=== PATIENT | female | born 1935 | race Caucasian/White ===

== ENCOUNTER 2020-06-30 10:59 | Outpatient (RCR) | payer MEDICARE, OTHER, SELFPAY | END 2020-06-30 23:59 | LOC: IMMUN 10:59 | PROVIDERS: PCP Family Medicine; Referring Provider Family Medicine; Visit Provider Family Medicine | DX: Z23 Encounter for immunization (principal) | CPT/HCPCS: 0011A; 0012A; 91301 ==

== ENCOUNTER → 2020-09-23 11:04 | Outpatient (CLI) | payer MEDICARE, SELFPAY ==
--- NOTE | 2020-09-23 11:07 | US_ITS ---
STUDY: RENAL ULTRASOUND - COMPLETE REASON FOR EXAM: Female, 85 years old. UTI recurring. TECHNIQUE: Ultrasound evaluation of the kidneys was performed with real-time and static thomas-scale imaging. COMPARISON: None. FINDINGS: RIGHT KIDNEY: Normal location of the right kidney, which is normal in size. The right kidney measures 9.2 cm x 4.2 cm x 3.9 cm. There is a normal cortex of the right kidney. The renal cortex measures 1.1 cm. There is no right renal mass or cyst. There are no right renal calculi. There is no right hydronephrosis. DISTAL RIGHT URETER: There is non-visualization of the distal right ureter. There is no demonstrated right ureterovesical junction calculus. There is no demonstrated right ureteral jet. LEFT KIDNEY: Normal location of the left kidney, which is normal in size. The left kidney measures 8.9 cm x 4.2 cm x 4 cm. There is a normal cortex of the left kidney. The renal cortex measures 1.0 cm. There is no left renal mass or cyst. There are no left renal calculi. There is no left hydronephrosis. DISTAL LEFT URETER: There is non-visualization of the distal left ureter. There is no demonstrated left ureterovesical junction calculus. There is no demonstrated left ureteral jet. BLADDER: The distended urinary bladder has a volume of 168.3 ml. There is a normal wall thickness of the distended urinary bladder. There is no demonstrated mass within the urinary bladder. There are no demonstrated bladder calculi. US/Kidney and Bladder IMPRESSION: Normal ultrasound of the kidneys and urinary bladder. Electronically Signed: Souleymane Luther MD at 14:51 EDT , Service support ,
== END ==
PROVIDERS: PCP Family Medicine; Referring Provider Urology; Visit Provider Urology
DX: N39.0 Urinary tract infection, site not specified (principal)
CPT/HCPCS: 76770

== ENCOUNTER → 2020-11-26 13:40 | Outpatient (CLI) | payer MEDICARE, SELFPAY ==
--- NOTE | 2020-11-26 13:42 | RAD_ITS ---
EXAM: XR LUMBOSACRAL SPINE, 4 OR 5 VIEWS : 1935 CLINICAL INDICATION: UTI, BACK PAIN TECHNIQUE: Frontal, lateral and oblique views of the lumbar spine. This report was created using Monitor110 report Tour Engine technology. COMPARISON: None. FINDINGS: VERTEBRAE: Unremarkable. Preserved vertebral body height. No fracture. No spondylolisthesis. Preservation of the normal lumbar lordosis. No significant facet arthropathy. DISC SPACES: There is disc space narrowing 1-2, L2-3 and L5 the-S1. There is bony neural foraminal narrowing at L5-S1. GASTROINTESTINAL TRACT: Unremarkable as visualized. Included bowel gas pattern is non-obstructive. OTHER FINDINGS: Oblique views show no evidence of a pars defect. RAD/L/S Spine Min 4 Views IMPRESSION: Degenerative changes with disc space narrowing in the lower lumbar spine. There is no acute osseous abnormality. at 0338 Reported and signed by: Cooper Gordon MD Electronically Signed: Cooper Gordon MD at 3:36 EDT Tel , Service support ,
== END ==
PROVIDERS: PCP Family Medicine; Referring Provider Urology; Visit Provider Urology
DX: N39.0 Urinary tract infection, site not specified (principal); M54.9 Dorsalgia, unspecified
CPT/HCPCS: 72110

== ENCOUNTER 2023-01-23 14:54 | Observation (INO) | payer MEDICARE, SELFPAY ==
--- NOTE | 2023-01-23 14:55 | RAD_ITS ---
STUDY: X-RAY - RIGHT SHOULDER REASON FOR EXAM: Female, 87 years old. Injury/Pain TECHNIQUE: 2 view(s) of the shoulder. COMPARISON: None. FINDINGS: Comminuted fractures are seen of the humeral head including a fragment of the greater tuberosity. Probable nondisplaced fracture through the surgical neck of the humerus. No angulation. Unremarkable glenohumeral articulation. Normal acromioclavicular joint. Normal acromion. The soft tissue structures are unremarkable. Normal visualized pulmonary apex. RAD/Shoulder min 2 Views IMPRESSION: Multi fragmented fractures of the humeral head and likely through the humeral neck without significant displacement. Electronically Signed: Stephen Lozano MD at 16:27 EDT ,
[2023-01-23 14:56] VITALS: BP 114/51; PULSE 81; RESP 16; TEMP 36.3; O2SAT 94; BMI 24.6
[2023-01-23 15:02] VITALS: O2SAT 94
--- NOTE | 2023-01-23 15:11 | EDS_ITS ---
HPI History of Present Illness Chief Complaint: Fall Detail of Chief Complaint: Patient complains of right shoulder and right hip pain status post fall. Informant: patient Onset/Context/Timing Onset: Hours Mechanism/Context: Blunt Injury and Fall Location of pain/injuries: Right shoulder and Right hip Location: Home Current Severity: Mild Maximum Severity: Severe Worsened by: Movement of right upper extremity and right lower extremity Relieved by: The hip pain is better if she remains still the shoulder pain is constant Associated Symptoms Associated Symptoms: Positive for Loss of function and Inability to ambulate; Negative for Parasthesias, Weakness, Loss of consciousness or Amnesia Length of loss of consciousness: Not applicable Narrative Narrative: Patient is a 87-year-old female. She cannot follow-up. She landed on her right side. She denies head trauma. She denies loss of conscious. She denies neck pain. She denies paresthesia, anesthesia or motor weakness presently at the time of the fall. She denies shortness of breath or chest pain. She denies abdominal pain. She denies low back pain. Tetanus Immunization: Unknown Recent Illness/Hospitalization: No PFSH PFSH Home Medications hydrocodone-acetaminophen 5-325mg 5mg-325mg 1 tab PO Q6H PRN PRN Pain 5 days #20 TABLETS 01/23/23 [Rx Last Taken Unknown] Allergy/AdvReac Type Severity Reaction Status Date / Time Penicillins Allergy Intermediate HIVES Verified 01/23/23 15:38 cefuroxime Allergy Mild Itching Verified 01/23/23 15:38 clindamycin Allergy Mild Itching Verified 01/23/23 15:38 nitrofurantoin AdvReac GI UPSET Verified 01/23/23 15:38 prednisone AdvReac CONFUSION Verified 01/23/23 15:38 Sulfa (Sulfonamide AdvReac DIARRHEA Verified 01/23/23 15:38 Antibiotics) tramadol AdvReac DIZZINESS, Verified 01/23/23 15:38 INSOMNIA zolpidem AdvReac CONFUSION Verified 01/23/23 15:38 Social History (Updated 01/23/23 @ 15:[address] Hever Ash MD) household members: none Smoking Status: Never smoker substance use type: does not use ROS ROS ED Constitutional Constitutional ED: Denies chills, fever(s), subjective, sweats or weight loss Eyes Eyes: Denies blurry vision or change in vision ENT ENT ED: Denies ear pain, rhinorrhea or sore throat Cardiovascular Cardiovascular: Denies chest pain, palpitations or racing heartbeat Respiratory/Chest Respiratory/Chest: Denies cough, dyspnea or dyspnea on exertion Gastrointestinal Gastrointestinal: Denies abdominal pain, melena, nausea or vomiting Genitourinary Genitourinary ED: Denies dysuria, hematuria or urinary frequency Musculoskeletal Musculoskeletal: Reports other Details: Complains of right hip and right shoulder pain. Patient is holding her right upper extremity internally rotated and abducted. ; Denies arthralgias, back pain or myalgias Integumentary Denies rash Neurologic Neurologic: Denies headache(s) or paresthesias Endocrine Endocrinology: Denies cold intolerance or heat intolerance Hematologic/Lymphatic Hematologic/Lymphatic: Denies easy bleeding or easy bruising EXAM Physical Exam Const Vital Signs: 01/23/23 14:56 01/23/23 15:02 Temperature 97.4 F L Temperature Source Temporal Pulse Rate 81 Respiratory Rate 16 Respiratory Effort Normal Non-Labored Respiratory Depth Normal Respiratory Pattern Normal Blood Pressure 114/51 L Blood Pressure Mean 72 Pulse Ox 94 94 Oxygen Delivery Method Room Air Room Air Positive well nourished and well developed Constitutional Narrative: Patient appears uncomfortable. Vital signs noted. She is not hypoxic. She is not febrile. General Appearance ED: well developed; Negative for NAD HEENT HEENT Narrative: Head is atraumatic and normocephalic. Ears normal. No hemotympanum. No CSF otorrhea or rhinorrhea. No septal deviation hematoma. No dental trauma. No tenderness of the right or left TMJ joint. Eyes PERRL and EOMs intact bilaterally General Eye ED: Yes other Other Details: There is no subconjunctival hemorrhage. There is no diagnosis. Neck Neck Narrative: There is no pain outpatient posteriorly in the midline. Patient moves her neck freely without pain or complaint of pain. Chest Wall inspection of chest normal and palpation of chest normal Resp normal respiratory effort and clear to auscultation bilaterally Cardio regular rhythm, S1 normal heart sound, S2 normal heart sound and no murmurs Rate: regular rate GI normal to inspection, nondistended, normoactive bowel sounds, non-tender, non-distended and no masses GI Narrative: There is no palpable or pulsatile mass. There is nominal bruit. Palpation: soft Back/Spine normal to inspection and no thoracic nor lumbar tenderness Extremity Negative for normal to inspection Extremity Narrative: There is swelling of the right shoulder with pain ovation of the proximal humerus. There is no pain ovation over the clavicle or AC joint. There is no pain ovation over the olecranon process, lateral medial epicondyle or radial head. Patient has no pain the patient with distal radius ulna, carpal bones or metacarpal bones. Axillary, median, radial and ulnar function intact. The right lower extremity is shortened. Logrolling causes her discomfort in the right groin. DP pulses palpable. There is no evidence of trauma to the knee or ankle. There is no tenderness of the patella, joint line of the right knee. There is no swelling of the right ankle with no tenderness over the lateral or medial malleolus. There is no pain to palpation of the base of the fifth metatarsal. Neuro oriented x3, CN's II-XII intact bilaterally, No moves all extremities, no focal motor deficits and no sensory deficits noted Mar Coma Scale: document GCS findings Spontaneous Obeys Commands Oriented 15 Plantar Reflex: Downgoing: bilateral Psych mental status grossly normal and thought process normal Skin no rashes or lesions noted, no wounds, No skin turgor normal and no jaundice MDM MDM MDM Narrative Medical decision making narrative: X-ray of the right shoulder was obtained since concern patient has a proximal humeral fracture. Because patient has a shortened right lower extremity and groin pain with internal and external rotation suspect that she has a hip fracture as well. Patient was medicated with morphine. History & Record Review Discussion w/independent historian: Family (Daughter was informed of results. Daughter informing that she has not seen orthopedic surgeon. She was referred to Dr. Stein.) Lab Data Attestation: I reviewed the patient's lab results. Lab results narrative: CBC is unremarkable. MCV is elevated, 105 1 4. Basic metabolic panel reveals an elevated creatinine of 1.08 with a GFR of 51. Glucose is 154 with a normal CO2 and anion gap. Labs: Laboratory Results - last 24 hr 01/23/23 15:20 WBC 7.4 RBC 3.88 L Hgb 13.2 Hct 40.9 MCV 105.4 H MCH 34.0 H MCHC 32.3 RDW Std Deviation 54.1 H RDW Coeff of Shaila 13.8 Plt Count 112 L MPV 11.1 Immature Gran % (Auto) 0.500 Neut % (Auto) 69.7 Lymph % (Auto) 20.2 [place] % (Auto) 5.8 Eos % (Auto) 3.4 Baso % (Auto) 0.4 Absolute Neuts (auto) 5.1 Absolute Lymphs (auto) 1.49 Nucleated RBC % 0 Sodium 139 Potassium 3.7 Chloride 108 H Carbon Dioxide 26.0 Anion Gap 5 BUN 20 H Creatinine 1.08 H Estim Creat Clear Calc 27.17 Est GFR (MDRD) Af Amer 62 Est GFR (MDRD) Non-Af 51 L BUN/Creatinine Ratio 18.5 Glucose 154 H Calcium 8.9 Radiography Chest X-Ray - ED: 2 View (2 view x-ray of the humerus reveals what appears to be a fracture through a large osteophyte where the supraspinatus tendon would attach and there appears to be disruption of the cortex inferiorly where the surgical neck would be.) and Read by ED Physician (Three-view x-ray of the hip reveals no evidence of fracture, subluxation or dislocation of the femur and there is no evidence of fracture of the pelvis.) Discharge Plan Triage Chief Complaint: Fall ED Provider: Hever Ash Dx/Rx/DC Orders Clinical Impression: Injury due to fall, Nondisplaced fracture of proximal end of right humerus, Contusion of right hip, initial encounter Instructions: ED Fracture, Shoulder Prescriptions: New hydrocodone-acetaminophen [hydrocodone-acetaminophen] 5-325 mg tablet 1 tab PO Q6H PRN PRN (Reason: Pain) 5 Days Qty: 20 0RF Stand Alone Forms: [facility] Primary Care Provider: Odin Bolton Referrals: Odin Bolton DO [Primary Care Provider] - Rip Stein DO [Med Staff - Active Staff] - 5-7 Days Disposition Disposition: Home, Self Care
[2023-01-23 15:31] LABS: Absolute Lymphocyte Count 1.49 X10^3/uL (0.83-4.51); Absolute Neutrophil Count 5.1 X10^3/uL (2.0-7.7); Basophil# 0.03 X10^3/uL; Basophil% 0.4 % (0-1); Eosinophil# 0.25 X10^3/uL; Eosinophils% 3.4 % (0-5); Hematocrit 40.9 % (37-47); Hemoglobin 13.2 g/dL (12.0-15.0); Lymphocyte # 1.49 X10^3/ul (0.83-4.51); Lymphocyte % 20.2 % (19-41); Mean Corp Hgb Conc 32.3 g/dL (32-36); Mean Corpuscular Volume 105.4 fL (81-99); Mean Platelet Vol. 11.1 fl (6.2-12.0); Monocyte# 0.43 X10^3/uL; Monocyte% 5.8 % (0-10); NRBC Flagged by Analyzer 0 % (0-5); Neutrophil # 5.13 X10^3/uL (2.7-7.7); Neutrophil % 69.7 % (47-70); Platelet Count 112 K/mm3 (150-450); RBC Distribution Width CV 13.8 % (11.6-14.6); RBC Distribution Width SD 54.1 fl (35.1-43.9); Red Blood Count 3.88 M/mm3 (4.2-5.4); White Blood Count 7.4 K/mm3 (4.4-11.0)
[2023-01-23] MEDS: Morphine 2 MG/ML Syringe IV ×3 (15:32→21:55)
[2023-01-23 15:43] LABS: Anion Gap 5 (5-15); BUN 20 mg/dL (7-18); BUN/Creat Ratio 18.5 RATIO (10-20); Calcium,Total 8.9 mg/dL (8.5-10.1); Chloride 108 mmol/L (98-107); Creatinine, Serum 1.08 mg/dL (0.55-1.02); EST Glomerular Filtration Rate 51 mL/min (>60); Est Glom Filt Rate - Afr Amer 62 mL/min (>60); Estimated Creatinine Clearance 27.17 ml/min; Glucose 154 mg/dL (74-106); Potassium 3.7 mmol/L (3.5-5.1); Sodium Level 139 mmol/L (136-145)
--- NOTE | 2023-01-23 15:43 | RAD_ITS ---
STUDY: X-RAY - PELVIS AND RIGHT HIP REASON FOR EXAM: Female, 87 years old. Injury/Pain TECHNIQUE: 3 views of the pelvis and hip. COMPARISON: None. FINDINGS: There is a non-specific bowel gas pattern. Normal visualized soft tissue structures. Normal bilateral iliac wings, sacroiliac joints and visualized sacrum. Normal bilateral superior and inferior pubic rami. Normal pubic symphysis. Normal bilateral ischial tuberosities. Normal visualized femoral head. Normal acetabulum. Normal hip joint. RAD/HIP, UNI W/ Pelvis 2-3 Views IMPRESSION: Normal x-ray examination of the pelvis and hip. Electronically Signed: Stephen Lozano MD at 16:26 EDT ,
--- NOTE | 2023-01-23 16:41 | HP.PCM_ITS ---
HPI - General General Date of Admission: 01/23/23 Date of Service: 01/23/23 Chief Complaint: mechanical fall HPI Narrative ALICIA TIWARI, is a 87 F with a PMH as outlined who presents via the ED on 01/23/2023 with a complaint of mechanical fall. She fell and landed on her right side. She denied hitting her head, and denied any dizziness, lightheadedness, shortness of breath or any such complaints. She did admit to pain in her RUE and RLE and couldnt weight bear due to pain. She came in to the ED for evaluation. Her daughters were by her bedside, and stated patient had had similar previous falls whilst at her boyfriend's house. THis current fall was also at her boyfriend's house. She is on eliquis. She denies hitting her head. Vitals in the ED were temp of 97.4F, [place] of 81, BP of 114/51, RR of 16 and pulse ox of 94% on room air. CBC showed hb of 13.2, wbc of 7.4, platelets of 112. Chemistry showed sodium of 139, bicarb of 26 and Cr of 1.08. Pelvic xray was normal and showed no evidence of fracture. Xray of the RUE showed mult ifragmented fractures of the humeral head and likely through the humeral neck without significant displacement. SHe was to be discharged fro the ED but was unable to weight bear due to pain. Family was willing to take her home to care for her, but were concerned about her significant pain. She is therefore being admitted to be managed for debility and intractable pain due to mechanical fall. PFSH Home Medications hydrocodone-acetaminophen 5-325mg 5mg-325mg 1 tab PO Q6H PRN PRN Pain 5 days #20 TABLETS 01/23/23 [Rx Last Taken Unknown] Allergy/AdvReac Type Severity Reaction Status Date / Time Penicillins Allergy Intermediate HIVES Verified 01/23/23 15:38 cefuroxime Allergy Mild Itching Verified 01/23/23 15:38 clindamycin Allergy Mild Itching Verified 01/23/23 15:38 nitrofurantoin AdvReac GI UPSET Verified 01/23/23 15:38 prednisone AdvReac CONFUSION Verified 01/23/23 15:38 Sulfa (Sulfonamide AdvReac DIARRHEA Verified 01/23/23 15:38 Antibiotics) tramadol AdvReac DIZZINESS, Verified 01/23/23 15:38 INSOMNIA zolpidem AdvReac CONFUSION Verified 01/23/23 15:38 Social History (Updated 01/23/23 @ 15:[address] Hever Ash MD) household members: none Smoking Status: Never smoker substance use type: does not use ROS Review of Systems ROS Unobtainable: Denies due to encephalopathy Constitutional Constitutional: Reports fatigue, malaise and weakness; Denies anorexia, chills or fever(s) Eyes Eyes: Denies change in vision ENT HEENT: Denies dysphagia or headache(s) Cardiovascular Cardiovascular: Denies chest pain, edema, palpitations or paroxysmal nocturnal dyspnea Respiratory/Chest Respiratory/Chest: Denies cough, shortness of breath at rest or shortness of breath with exertion Gastrointestinal Gastrointestinal: Denies abdominal pain, constipation, diarrhea, nausea or vomiting Genitourinary Genitourinary: Denies dysuria Musculoskeletal Musculoskeletal: Denies back pain or joint pain Neurologic Neurologic: Denies confusion, dizziness, focal weakness or headache(s) Psychiatric Psychiatric: Denies anxiety or depression Endocrine Endocrinology: Denies change in body appearance Vital Signs Vital Signs Vital Signs: 01/23/23 14:56 01/23/23 15:02 Temperature 97.4 F L Temperature Source Temporal Pulse Rate 81 Respiratory Rate 16 Respiratory Effort Normal Non-Labored Respiratory Depth Normal Respiratory Pattern Normal Blood Pressure 114/51 L Blood Pressure Mean 72 Pulse Ox 94 94 Oxygen Delivery Method Room Air Room Air Weight Weight: 130 lb 4.691 oz Body Mass Index (BMI) 24.6 Physical Exam Const alert and oriented x3 Constitutional Narrative: in moderate distress due to pain. HEENT normocephalic, head/scalp atraumatic, moist oral mucous membranes, oropharynx normal and gingiva normal Eyes PERRL and EOMs intact bilaterally Neck supple and no JVD Lymph Lymphatic: no lymphadenopathy noted Resp normal respiratory effort, normal air movement and clear to auscultation bilaterally Cardio regular rate, regular rhythm, S1 normal heart sound, S2 normal heart sound and no murmurs GI normal to inspection, nondistended, normoactive bowel sounds, soft to palpation, non-tender and non-distended Extremity normal capillary refill and no clubbing, cyanosis or edema Extremity Narrative: RUE in sling, has severe tenderness with palpation of right shoulder, unable to move right arm due to pain. Skin General Skin Exam: no breakdown Neuro CN's II-XII intact bilaterally, no focal motor deficits and no sensory deficits noted Psych cooperative Psych Narrative: mild distress due to pain Mood & Affect: anxious Results Lab / Micro Data 01/23/23 15:20 01/23/23 15:20 Labs: Laboratory Results - last 24 hr 01/23/23 15:20: WBC 7.4, RBC 3.88 L, Hgb 13.2, Hct 40.9, MCV 105.4 H, MCH 34.0 H , MCHC 32.3, RDW Std Deviation 54.1 H, RDW Coeff of Shaila 13.8, Plt Count 112 L, MPV 11.1, Immature Gran % (Auto) 0.500, Neut % (Auto) 69.7, Lymph % (Auto) 20.2, [place] % (Auto) 5.8, Eos % (Auto) 3.4, Baso % (Auto) 0.4, Absolute Neuts (auto) 5.1, Absolute Lymphs (auto) 1.49, Nucleated RBC % 0, Sodium 139, Potassium 3.7, Chloride 108 H, Carbon Dioxide 26.0, Anion Gap 5, BUN 20 H, Creatinine 1.08 H, Estim Creat Clear Calc 27.17, Est GFR (MDRD) Af Amer 62, Est GFR (MDRD) Non-Af 51 L, BUN/Creatinine Ratio 18.5, Glucose 154 H, Calcium 8.9 Radiology Impression Shoulder X-Ray 01/23/23 14:55 IMPRESSION: Multi fragmented fractures of the humeral head and likely through the humeral neck without significant displacement. Electronically Signed: Stephen Lozano MD at 16:27 EDT , Hip/Pelvis X-Ray 01/23/23 15:43 IMPRESSION: Normal x-ray examination of the pelvis and hip. Electronically Signed: Stephen Lozano MD at 16:26 EDT , Assessment & Plan Assessment/Plan (1) Injury due to fall: (2) Nondisplaced fracture of proximal end of right humerus: PLAN: Plan #NOn displaced fracture of right proximal humerus * due to mechanical fall * has fallen several times, usually at her boyfriend's house * lives alone. * imaging done showed comminuted fractures of the humeral head including a frag ment of the greater tuberosity, and a probable nondisplaced fracture through the surgical neck of the humerus. * xray of the hip and pelvis showed no evidence of fracture * she denies any pain in her hip and only complains of pain in her RUE. * admit to med surg * PO tylenol, PO oxycodone and IV morphine prn for pain * fall precautions * will also get an xray of the right elbow as she is complaining about pain in right elbow * #History of afib * on metoprolol and eliquis * in light of her recent history of falls, I initiated the conversation about the increased risk of falls whilst on eliquis. WIll revisit this conversation with them during the admission to help them decide whether they want her to continue on eliquis or otherwise * DVT prophylaxis: on eliquis COde status; full code * Patient and daughters counseled extensively about different types of CODE STATUS including full code, DNR CCA and DNR CCA. Patient elects to be full code. In patient's words she wasnt ready to and wanted everything done for her to keep her alive * Total [id number] time 17 minutes. * Charges/Coding Visit Charges Inpatient E&M: 62990 Init Hosp L2 Procedures Hospitalists Procedures: 67530 Advncd Care Plan 30 Min
[2023-01-23 17:34] VITALS: BMI 22.6
[2023-01-23] MEDS: 0.9% Normal Saline 1,000 ML 125 ML IV (17:50)
[2023-01-23 18:44] VITALS: BP 118/58; PULSE 80; RESP 16; TEMP 36.6; O2SAT 94
[2023-01-23] MEDS: Diphth,Pertuss(Acell),Tet Vac 0.5 ML Vial IM (18:54)
--- NOTE | 2023-01-23 19:16 | RAD_ITS ---
STUDY: X-RAY - RIGHT ELBOW REASON FOR EXAM: Female, 87 years old. right elbow pain after mechanical fall TECHNIQUE: 2 view(s) of the elbow. COMPARISON: None. FINDINGS: Limited by extensive overlying artifact. There is also suboptimal positioning. No gross fractures. No dislocations. The soft tissue structures are unremarkable. RAD/Elbow 2 Views IMPRESSION: Significantly limited as above, no gross acute abnormality. Electronically Signed: Stephen Lozano MD at 20:24 EDT ,
[2023-01-23] MEDS: oxyCODONE 5 MG Tablet PO (20:28)
[2023-01-23] MEDS: APIXABAN 2.5 MG TABLET (WCH) PO (21:55)
[2023-01-23] MEDS: 0.9% Saline Lock 10 ML Syringe IV (21:55)
[2023-01-24] VITALS (11 sets, daily range): BP systolic 108–132; BP diastolic 58–74; PULSE 73–82; RESP 16–18; TEMP 36.4–36.6; O2SAT 89–99
[2023-01-24] MEDS: Morphine 4 MG/ML Syringe IV ×2 (01:17→04:03)
[2023-01-24] MEDS: 0.9% Normal Saline 1,000 ML 125 ML IV (01:18)
[2023-01-24] MEDS: Acetaminophen 325 MG Tablet 650 MG PO ×3 (04:02→23:34)
[2023-01-24 07:01] LABS: Absolute Lymphocyte Count 1.53 X10^3/uL (0.83-4.51); Absolute Neutrophil Count 7.1 X10^3/uL (2.0-7.7); Basophil# 0.02 X10^3/uL; Basophil% 0.2 % (0-1); Eosinophil# 0.02 X10^3/uL; Eosinophils% 0.2 % (0-5); Hematocrit 34.9 % (37-47); Hemoglobin 11.4 g/dL (12.0-15.0); Lymphocyte # 1.53 X10^3/ul (0.83-4.51); Lymphocyte % 16.3 % (19-41); Mean Corp Hgb Conc 32.7 g/dL (32-36); Mean Corpuscular Hgb 34.5 pg (27.0-32.0); Mean Corpuscular Volume 105.8 fL (81-99); Mean Platelet Vol. 11.9 fl (6.2-12.0); Monocyte# 0.66 X10^3/uL; NRBC Flagged by Analyzer 0.2 % (0-5); Neutrophil # 7.13 X10^3/uL (2.7-7.7); Neutrophil % 75.8 % (47-70); POSITIVE COUNT YES; Platelet Count 96 K/mm3 (150-450); RBC Distribution Width CV 13.9 % (11.6-14.6); RBC Distribution Width SD 54.3 fl (35.1-43.9); White Blood Count 9.4 K/mm3 (4.4-11.0)
[2023-01-24 07:04] LABS: Differential Indicated SCAN CRITERIA MET
[2023-01-24 07:13] LABS: Anion Gap 5 (5-15); BUN 17 mg/dL (7-18); Calcium,Total 8.5 mg/dL (8.5-10.1); Chloride 112 mmol/L (98-107); Creatinine, Serum 0.81 mg/dL (0.55-1.02); EST Glomerular Filtration Rate 71 mL/min (>60); Est Glom Filt Rate - Afr Amer 86 mL/min (>60); Estimated Creatinine Clearance 37.97 ml/min; Glucose 124 mg/dL (74-106); Potassium 3.7 mmol/L (3.5-5.1); Sodium Level 140 mmol/L (136-145)
--- NOTE | 2023-01-24 09:22 | CASEMGMT ---
Discharge Planning A list of SNF providers including quality and resource use data and consistent with the patient?s preferred geographic region, medical needs, and insurance network was created in [employer] Guide. This list was provided to the SW. Milly Powell Discharge Planning Asst.
[2023-01-24] MEDS: APIXABAN 2.5 MG TABLET (WCH) PO ×2 (09:38→20:33)
[2023-01-24] MEDS: Furosemide 20 MG Tablet PO (09:39)
[2023-01-24] MEDS: FLUoxetine 20 MG Capsule PO (09:39)
[2023-01-24] MEDS: Allopurinol 300 MG Tablet PO (09:39)
[2023-01-24] MEDS: oxyCODONE 5 MG Tablet PO ×3 (09:39→20:36)
[2023-01-24] MEDS: Metoprolol(XL)Succ 25 MG Tablet PO (09:39)
[2023-01-24] MEDS: Pantoprazole Sodium 40 MG Tablet PO (09:39)
--- NOTE | 2023-01-24 12:02 | CASEMGMT ---
ELIANE PATEL Assessment: Face to Face with pt for initial transition planning/care coordination assessment. ELIANE PATEL introduced self and role at [facility], pt voices understanding and consents to assessment. Pt is A/O x4 and answers all questions appropriately at this time. Pt sig other and two dtrs present during assessment. Pt agreeable to assessment in their presence. Care providers, pharmacy, and demographics verified/updated. Admitting Dx: intractable pain d/t mechanical fall PCP:Che Specialists:Amalatifkrzysztof, cardio; Claudia, CLARI [facility]erred [facility]acy: [facility] Prescription Benefit: yes LNOK: Chelsey Gross, dtr; Gemma Giron dtr Living Arrangements: Pt lives alone in a mobile home with 5 steps to enter with a rail. Pt reports she was I in ADL's prior to this hospitalization. Pt fell at sig other's home. She states they take turns going to each other's homes. Pt denies concerns at home. Pt dtrs provide meals for pt. Pt did own laundry and grocery shopping. Transportation: Pt sig other or dtrs transport pt to medical appts. DME/HHC/SNF: Pt has a BSC, shower chair, grab bars, cane and walker. Pt reports she has had HHC in the past, unsure of the name of the agency. Pt also has a nurse from her insurance that comes in monthly. Pt denies SNF stays. Pt states no concerns with going home at time of dc. She feels that she can manage at home. Pt two dtrs and sig other plan to take shifts so pt has someone with her atc. Pt is agreeable to HHC in the home. She is aware that ELIANE PATEL will provide list of agencies to choose from. Pt dtrs and sig other also agreeable to this plan. Pt states no further concerns/needs. CM to follow. Advised pt to ask CM if any further question/concerns/needs arise, voices understanding. Pt Goal: Home with HHC Plan: Home with HHC
--- NOTE | 2023-01-24 12:25 | CASEMGMT ---
Discharge Planning A list of home health providers including quality and resource use data and consistent with the patient?s preferred geographic region, medical needs, and insurance network was created in [employer] Guide. This list was provided to the RN JORGE. Milly Powell, Discharge Planning Asst.
--- NOTE | 2023-01-24 12:30 | CASEMGMT ---
Provided pt and dtr with a list of [facility] agencies created by andrew chin.
[2023-01-24] MEDS: Morphine 2 MG/ML Syringe IV (12:46)
[2023-01-24] MEDS: 0.9% Saline Lock 10 ML Syringe IV (12:46)
--- NOTE | 2023-01-24 14:04 | PN_ITS ---
Subjective Subjective Patient seen and examined. She still complained of pain in her right upper extremity due to the humeral fracture. Her daughter was by her bedside. She had no other complaints and had episode of confusion. Review of systems otherwise negative. She was alert and oriented x3 at time of my review. Objective Data Objective Data Vital Signs: Vital Signs Temp Pulse Resp BP Pulse Ox O2 Del Method O2 Flow Rate 98 F 79 18 128/74 H 95 Nasal Cannula 3 01/24/23 09:45 01/24/23 09:45 01/24/23 09:45 01/24/23 09:45 01/24/23 09:45 01/24/23 09:45 01/24/23 12:07 Oxygen Flow Rate (L/min) 3 Oxygen Delivery Method Nasal Cannula Weight: 123 lb 10.869 oz Body Mass Index (BMI) 22.6 Intake & Output: Intake and Output for Last 24 Hours 01/22/23 01/23/23 01/24/23 23:59 23:59 23:59 Intake Total 100 / 220 2203.33 / 2203.33 Output Total 400 / 400 Balance 100 / 70 1803.33 / 1803.33 Lab / Micro Data 01/24/23 05:38 01/24/23 05:38 Labs: Laboratory Results - last 24 hr 01/23/23 15:20: WBC 7.4, RBC 3.88 L, Hgb 13.2, Hct 40.9, MCV 105.4 H, MCH 34.0 H , MCHC 32.3, RDW Std Deviation 54.1 H, RDW Coeff of Shaila 13.8, Plt Count 112 L, MPV 11.1, Immature Gran % (Auto) 0.500, Neut % (Auto) 69.7, Lymph % (Auto) 20.2, [place] % (Auto) 5.8, Eos % (Auto) 3.4, Baso % (Auto) 0.4, Absolute Neuts (auto) 5.1, Absolute Lymphs (auto) 1.49, Nucleated RBC % 0, Sodium 139, Potassium 3.7, Chloride 108 H, Carbon Dioxide 26.0, Anion Gap 5, BUN 20 H, Creatinine 1.08 H, Estim Creat Clear Calc 27.17, Est GFR (MDRD) Af Amer 62, Est GFR (MDRD) Non-Af 51 L, BUN/Creatinine Ratio 18.5, Glucose 154 H, Calcium 8.9 01/24/23 05:38: WBC 9.4, RBC 3.30 L, Hgb 11.4 L, Hct 34.9 L, MCV 105.8 H, MCH 34.5 H, MCHC 32.7, RDW Std Deviation 54.3 H, RDW Coeff of Shaila 13.9, Plt Count 96 L, MPV 11.9, Immature Gran % (Auto) 0.500, Neut % (Auto) 75.8 H, Lymph % (Auto) 16.3 L, [place] % (Auto) 7.0, Eos % (Auto) 0.2, Baso % (Auto) 0.2, Absolute Neuts (auto) 7.1, Absolute Lymphs (auto) 1.53, Nucleated RBC % 0.2, Sodium 140, Potassium 3.7, Chloride 112 H, Carbon Dioxide 23.0, Anion Gap 5, BUN 17, Creatinine 0.81, Estim Creat Clear Calc 37.97, Est GFR (MDRD) Af Amer 86, Est GFR (MDRD) Non-Af 71, BUN/Creatinine Ratio 21.0 H, Glucose 124 H, Calcium 8.5 Radiography Diagnostic Testing: Radiology Impression Shoulder X-Ray 01/23/23 14:55 IMPRESSION: Multi fragmented fractures of the humeral head and likely through the humeral neck without significant displacement. Electronically Signed: Stephen Lozano MD at 16:27 EDT Reading Location ID and State: [facility] / [place] , Service support , Hip/Pelvis X-Ray 01/23/23 15:43 IMPRESSION: Normal x-ray examination of the pelvis and hip. Electronically Signed: Stephen Lozano MD at 16:26 EDT Reading Location ID and State: [facility] / [place] , Service support , Elbow X-Ray 01/23/23 19:16 IMPRESSION: Significantly limited as above, no gross acute abnormality. Electronically Signed: Stephen Lozano MD at 20:24 EDT Reading Location ID and State: [facility] / [place] , Service support , Physical Exam Const alert and oriented x3 Constitutional Narrative: frail General Appearance: cooperative HEENT normocephalic, head/scalp atraumatic, moist oral mucous membranes, oropharynx normal and gingiva normal Eyes PERRL and EOMs intact bilaterally Neck supple and no JVD Lymph Lymphatic: no lymphadenopathy noted Resp normal respiratory effort, normal air movement and clear to auscultation bilaterally Cardio regular rate, regular rhythm, S1 normal heart sound, S2 normal heart sound and no murmurs GI normal to inspection, nondistended, normoactive bowel sounds, soft to palpation, non-tender and non-distended Extremity normal capillary refill and no clubbing, cyanosis or edema Extremity Narrative: RUE in sling, still has some tenderness with palpation of right shoulder, unable to move right arm due to pain. Skin General Skin Exam: no breakdown Neuro CN's II-XII intact bilaterally, no focal motor deficits and no sensory deficits noted Psych cooperative Psych Narrative: mild distress due to pain Appearance: appropriate Assessment & Plan Assessment/Plan (1) Injury due to fall: (2) Nondisplaced fracture of proximal end of right humerus: PLAN: Plan #NOn displaced fracture of right proximal humerus * due to mechanical fall * has fallen several times, usually at her boyfriend's house * lives alone. * imaging done showed comminuted fractures of the humeral head including a fragment of the greater tuberosity, and a probable nondisplaced fracture through the surgical neck of the humerus. * xray of the hip and pelvis showed no evidence of fracture * she denies any pain in her hip and only complains of pain in her RUE. * admit to med surg * PO tylenol, PO oxycodone and IV morphine prn for pain * fall precautions * xray of the right elbow showed no evidence of fracture. * will need follow up orthopedics on oupatient basis * #History of afib * on metoprolol and eliquis * in light of her recent history of falls, I initiated the conversation about the increased risk of falls whilst on eliquis. WIll revisit this conversation with them during the admission to help them decide whether they want her to continue on eliquis or otherwise, in a shared decision making process. * DVT prophylaxis: on eliquis COde status; full code * Patient and daughters counseled extensively about different types of CODE STATUS including full code, DNR CCA and DNR CCA. Patient elects to be full code. In patient's words she wasnt ready to and wanted everything done for her to keep her alive * Total [id number] time 17 minutes. * Charges/Coding Visit Charges Inpatient E&M: 47602 Subs Hosp L2
[2023-01-24 15:42] LABS: Bedside Glucose 113 mg/dL (74-106)
--- NOTE | 2023-01-24 16:19 | CASEMGMT ---
?Met with patient and her daughters to complete PELAYO form. PELAYO form explained to patient and her daughters who voiced understanding and signed form. Original form placed in pt?s chart and copy provided to patient. Milly Powell, Discharge Planning Asst.
[2023-01-24 19:06] LABS: Bacteria 0 SEEN /hpf (None Seen); Mucous, Urine 0 SEEN /hpf (<or=2+)
[2023-01-24 19:10] LABS: Color, Urine Yellow (Yellow); Glucose, Dipstick Normal (Normal); Ketone-Dipstick Negative (Negative); Leukocyte Esterase-Dipstick 100 /ul (Negative); Nitrite-Dipstick Negative (Negative); Occult Blood-Urine 10 /ul (Negative); Protein-Dipstick Negative (Negative); Specific Gravity, Urine 1.015 (1.002-1.030); Urine Bilirubin Dipstick Negative (Negative); Urine Clarity Sl. Cloudy (Clear); Urine Urobilinogen Normal (Normal)
[2023-01-24 19:16] LABS: Red Blood Cells-Urine 0-5 SEEN /hpf (0-5); Squamous Epithelial Cells - UA 0-5 SEEN /hpf (5-10); White Blood Cells 5-10 SEEN /hpf (0-5)
[2023-01-25] VITALS (8 sets, daily range): BP systolic 111–123; BP diastolic 64–76; PULSE 80–90; RESP 16–18; TEMP 36.3–36.7; O2SAT 88–94
[2023-01-25] MEDS: oxyCODONE 5 MG Tablet PO ×3 (02:00→13:57)
[2023-01-25] MEDS: Morphine 2 MG/ML Syringe IV (04:32)
[2023-01-25] MEDS: Acetaminophen 325 MG Tablet 650 MG PO ×2 (06:25→13:57)
[2023-01-25 07:15] LABS: Absolute Lymphocyte Count 2.06 X10^3/uL (0.83-4.51); Absolute Neutrophil Count 5.6 X10^3/uL (2.0-7.7); Basophil# 0.04 X10^3/uL; Basophil% 0.5 % (0-1); Eosinophil# 0.11 X10^3/uL; Eosinophils% 1.3 % (0-5); Hematocrit 35.2 % (37-47); Hemoglobin 11.1 g/dL (12.0-15.0); Lymphocyte # 2.06 X10^3/ul (0.83-4.51); Lymphocyte % 24.7 % (19-41); Mean Corp Hgb Conc 31.5 g/dL (32-36); Mean Corpuscular Hgb 33.4 pg (27.0-32.0); Mean Platelet Vol. 11.8 fl (6.2-12.0); Monocyte# 0.55 X10^3/uL; Monocyte% 6.6 % (0-10); NRBC Flagged by Analyzer 0 % (0-5); Neutrophil # 5.55 X10^3/uL (2.7-7.7); Neutrophil % 66.4 % (47-70); POSITIVE COUNT YES; Platelet Count 90 K/mm3 (150-450); RBC Distribution Width CV 13.7 % (11.6-14.6); RBC Distribution Width SD 52.9 fl (35.1-43.9); Red Blood Count 3.32 M/mm3 (4.2-5.4); White Blood Count 8.4 K/mm3 (4.4-11.0)
[2023-01-25 07:44] LABS: Anion Gap 5 (5-15); BUN 12 mg/dL (7-18); BUN/Creat Ratio 19.3 RATIO (10-20); Calcium,Total 8.4 mg/dL (8.5-10.1); Chloride 108 mmol/L (98-107); Creatinine, Serum 0.62 mg/dL (0.55-1.02); EST Glomerular Filtration Rate 96 mL/min (>60); Est Glom Filt Rate - Afr Amer 116 mL/min (>60); Estimated Creatinine Clearance 30.76 ml/min; Glucose 103 mg/dL (74-106); Potassium 3.3 mmol/L (3.5-5.1); Sodium Level 138 mmol/L (136-145)
[2023-01-25] MEDS: Allopurinol 300 MG Tablet PO (09:36)
[2023-01-25] MEDS: Furosemide 20 MG Tablet PO (09:36)
[2023-01-25] MEDS: Pantoprazole Sodium 40 MG Tablet PO (09:36)
[2023-01-25] MEDS: Metoprolol(XL)Succ 25 MG Tablet PO (09:36)
[2023-01-25] MEDS: FLUoxetine 20 MG Capsule PO (09:36)
[2023-01-25] MEDS: APIXABAN 2.5 MG TABLET (WCH) PO ×2 (09:36→22:02)
--- NOTE | 2023-01-25 10:36 | CASEMGMT ---
Addendum entered by Liza Avendaño 01/25/23 10:49: Discussed pt therapy session with therapy, ELIANE PATEL back into pt room. Pt dtr states she has concerns of pt going home. Discussed therapy at a facility. Pt is agreeable to therapy if it is at [facility]. Pt dtr and sig other also agreeable to this. Updated SW. Original Note: ELIANE PATEL into pt room, therapy is just starting to work with pt. Pt dtr Chelsey and Balwinder Elias, sig other present. Pt dtr states they are still planning on taking pt home with 24 hour care from family taking shifts. Therapy made her aware that yesterday pt was a max assist x2. She states she is aware and it is not their choice. She provided HH choices being 1.[facility] 2. [facility] and 3. [facility]. ELIANE PATEL will check back with pt and family after therapy prior to proceeding with HHC. Dtr asks if [facility] TCU is an option. ELIANE PATEL to check.
--- NOTE | 2023-01-25 10:59 | CASEMGMT ---
Social Work Pt's dgt brought in copy of pt's Health Care Power of Anesthesiologist Attending naming daughter Gemma Giron. HCPOA indicates pt has choose not to complete a living will. Copy placed on pt chart. RENARD Townsend
--- NOTE | 2023-01-25 11:02 | CASEMGMT ---
Addendum entered by Nubia Marin 01/25/23 11:48: Social Work TCU is able to accept pt and precert is to be started at this time. Pt updated. Phone call to pt HCPOA Dgt Allison and updated on discharge plan. Allison is agreeable to discharge to TCU for short term rehab. Plan: TCU, pending RENARD Boyce Original Note: Social Work SW received referral from RNJORGE that pt is requesting admission to TCU. SW met with pt, significant other and daughter and a list of SNF providers including quality and resource use data and consistent with the patient?s preferred geographic region, medical needs, and insurance network were provided from the [facility] Guide. Pt confirms her preference is [facility]. Referral made to Claudia in TCU. SW will await determination on acceptance. Plan: TCU, pending acceptance and RENARD Boyce
--- NOTE | 2023-01-25 11:33 | PN_ITS ---
Subjective Subjective Patient seen and examined. SHe was lying comfortably in bed. She did seem to be a bit confused. She still complained of pain but had no other complaints. Review of systems is otherwise negative. She has remained hemodynamically stable. Objective Data Objective Data Vital Signs: Vital Signs Temp Pulse Resp BP Pulse Ox O2 Del Method O2 Flow Rate 97.9 F 80 18 118/65 93 Room Air 3 01/25/23 09:32 01/25/23 09:36 01/25/23 09:32 01/25/23 09:32 01/25/23 09:32 01/25/23 09:32 01/25/23 10:45 FiO2 95 01/24/23 20:17 Oxygen Flow Rate (L/min) 3 Oxygen Delivery Method Room Air Weight: 123 lb 10.869 oz Body Mass Index (BMI) 22.6 Intake & Output: Intake and Output for Last 24 Hours 01/23/23 01/24/23 01/25/23 23:59 23:59 23:59 Intake Total 100 / 220 2203.33 / 2403.33 400 / 400 Output Total 600 / 1100 500 / 500 Balance 100 / 70 1603.33 / 1303.33 -100 / -100 Lab / Micro Data 01/25/23 06:20 01/25/23 06:20 Labs: Laboratory Results - last 24 hr 01/24/23 15:21: POC Glucose 113 H 01/24/23 18:50: Urine Color Yellow, Urine Clarity Sl. Cloudy, Urine pH 6.0, Ur Specific [place] 1.015, Urine Protein Negative, Urine Glucose (UA) Normal, Urine Ketones Negative, Urine Occult Blood 10 H, Urine Nitrite Negative, Urine Bilirubin Negative, Urine Urobilinogen Normal, Ur Leukocyte Esterase 100 H, Urine RBC 0-5 SEEN, Urine WBC 5-10 SEEN, Ur Squamous Epith Cells 0-5 SEEN, Urine Bacteria 0 SEEN, Urine Mucus 0 SEEN 01/25/23 06:20: WBC 8.4, RBC 3.32 L, Hgb 11.1 L, Hct 35.2 L, MCV 106.0 H, MCH 33.4 H, MCHC 31.5 L, RDW Std Deviation 52.9 H, RDW Coeff of Shaila 13.7, Plt Count 90 L, MPV 11.8, Immature Gran % (Auto) 0.500, Neut % (Auto) 66.4, Lymph % (Auto) 24.7, [place] % (Auto) 6.6, Eos % (Auto) 1.3, Baso % (Auto) 0.5, Absolute Neuts (auto) 5.6, Absolute Lymphs (auto) 2.06, Nucleated RBC % 0, Sodium 138, Potassium 3.3 L, Chloride 108 H, Carbon Dioxide 25.0, Anion Gap 5, BUN 12, Creatinine 0.62, Estim Creat Clear Calc 30.76, Est GFR (MDRD) Af Amer 116, Est GFR (MDRD) Non-Af 96, BUN/Creatinine Ratio 19.3, Glucose 103, Calcium 8.4 L Physical Exam Const alert Constitutional Narrative: frail General Appearance: cooperative Orientation / Consciousness: confused HEENT normocephalic, head/scalp atraumatic, moist oral mucous membranes, oropharynx normal and gingiva normal Eyes PERRL and EOMs intact bilaterally Neck no lymphadenopathy, supple and no JVD Lymph Lymphatic: no lymphadenopathy noted and no lymphedema noted Resp normal respiratory effort, normal air movement and clear to auscultation bilaterally Cardio regular rate, regular rhythm, S1 normal heart sound, S2 normal heart sound and no murmurs GI normal to inspection, nondistended, normoactive bowel sounds, soft to palpation, non-tender and non-distended Extremity normal capillary refill and no clubbing, cyanosis or edema Extremity Narrative: RUE in sling, Skin General Skin Exam: no breakdown Neuro CN's II-XII intact bilaterally, no focal motor deficits and no sensory deficits noted Psych Psych Narrative: confused Assessment & Plan Assessment/Plan (1) Injury due to fall: (2) Nondisplaced fracture of proximal end of right humerus: PLAN: Plan #NOn displaced fracture of right proximal humerus * due to mechanical fall * has fallen several times, usually at her boyfriend's house * lives alone. * imaging done showed comminuted fractures of the humeral head including a fragment of the greater tuberosity, and a probable nondisplaced fracture through the surgical neck of the humerus. * xray of the hip and pelvis showed no evidence of fracture * she denies any pain in her hip and only complains of pain in her RUE. * admit to med surg * PO tylenol, PO oxycodone and IV morphine prn for pain * fall precautions * xray of the right elbow showed no evidence of fracture. * will need follow up orthopedics on oupatient basis * #Hypokalemia: Potassium is 3.3. Will replace and trend. #History of afib * on metoprolol and eliquis * now agreeable to SNF; will discuss further with family about whether to lucille nue eliquis or hold it. #Thrombocytopenia: * Platelets were 112 on admission and now down to 90. * He had only records we have in the ED so I do not know if this is a true baseline which is an acute thrombocytopenia. * Asymptomatic for now. Will monitor. DVT prophylaxis: on eliquis COde status; full code * * Disposition: patient and family now agreeable to placement as she is unable to care for herself at home, and her daughters cant be with her 20/12 to provide round the clock care. * Charges/Coding Visit Charges Inpatient E&M: 77419 Subs Hosp L2
--- NOTE | 2023-01-26 01:26 | NURSING ---
Pt requested pain meds. When this nurse went in the room with oxy and tylenol, the Pt refused both.
[2023-01-26 01:51] VITALS: BP 152/73; PULSE 92; RESP 18; TEMP 36.5; O2SAT 94
[2023-01-26] MEDS: Acetaminophen 325 MG Tablet 650 MG PO (05:07)
[2023-01-26 06:50] LABS: Absolute Lymphocyte Count 1.18 X10^3/uL (0.83-4.51); Absolute Neutrophil Count 8.8 X10^3/uL (2.0-7.7); Basophil# 0.02 X10^3/uL; Basophil% 0.2 % (0-1); Eosinophil# 0.02 X10^3/uL; Eosinophils% 0.2 % (0-5); Hematocrit 34.5 % (37-47); Hemoglobin 11.1 g/dL (12.0-15.0); Lymphocyte # 1.18 X10^3/ul (0.83-4.51); Lymphocyte % 11.2 % (19-41); Mean Corp Hgb Conc 32.2 g/dL (32-36); Mean Corpuscular Hgb 33.7 pg (27.0-32.0); Mean Corpuscular Volume 104.9 fL (81-99); Mean Platelet Vol. 12.1 fl (6.2-12.0); Monocyte# 0.52 X10^3/uL; Monocyte% 4.9 % (0-10); NRBC Flagged by Analyzer 0.2 % (0-5); Neutrophil # 8.75 X10^3/uL (2.7-7.7); Neutrophil % 83.1 % (47-70); POSITIVE COUNT YES; Platelet Count 84 K/mm3 (150-450); RBC Distribution Width CV 13.2 % (11.6-14.6); RBC Distribution Width SD 50.8 fl (35.1-43.9); Red Blood Count 3.29 M/mm3 (4.2-5.4); White Blood Count 10.5 K/mm3 (4.4-11.0)
[2023-01-26 06:51] LABS: Differential Indicated SCAN CRITERIA MET
[2023-01-26 07:09] LABS: Differential Comment SCANNED
[2023-01-26 07:20] LABS: Anion Gap 8 (5-15); BUN 12 mg/dL (7-18); BUN/Creat Ratio 18.6 RATIO (10-20); Calcium,Total 8.4 mg/dL (8.5-10.1); Chloride 100 mmol/L (98-107); Creatinine, Serum 0.65 mg/dL (0.55-1.02); EST Glomerular Filtration Rate 92 mL/min (>60); Est Glom Filt Rate - Afr Amer 111 mL/min (>60); Estimated Creatinine Clearance 30.76 ml/min; Glucose 122 mg/dL (74-106); Potassium 3.8 mmol/L (3.5-5.1); Sodium Level 131 mmol/L (136-145)
[2023-01-26 08:02] VITALS: BP 128/70; PULSE 90; RESP 18; TEMP 36.6; O2SAT 92
[2023-01-26] MEDS: Allopurinol 300 MG Tablet PO (08:15)
[2023-01-26 08:16] VITALS: PULSE 90
[2023-01-26] MEDS: Metoprolol(XL)Succ 25 MG Tablet PO (08:16)
[2023-01-26] MEDS: FLUoxetine 20 MG Capsule PO (08:16)
[2023-01-26] MEDS: Pantoprazole Sodium 40 MG Tablet PO (08:16)
[2023-01-26] MEDS: Furosemide 20 MG Tablet PO (08:16)
[2023-01-26] MEDS: APIXABAN 2.5 MG TABLET (WCH) PO (08:17)
[2023-01-26] MEDS: oxyCODONE 5 MG Tablet PO (10:07)
--- NOTE | 2023-01-26 11:00 | PN_ITS ---
Subjective Subjective Patient seen and examined. Her significant other and her daughter were by her bedside. She had no active complaints. Pain was improved and more controlled. Review of systems was otherwise negative. Objective Data Objective Data Vital Signs: Vital Signs Temp Pulse Resp BP Pulse Ox O2 Del Method O2 Flow Rate 97.9 F 90 18 128/70 H 92 Room Air 3 01/26/23 08:02 01/26/23 08:16 01/26/23 08:02 01/26/23 08:02 01/26/23 08:02 01/26/23 08:12 01/25/23 10:45 FiO2 95 01/24/23 20:17 Oxygen Flow Rate (L/min) 3 Oxygen Delivery Method Room Air Weight: 123 lb 10.869 oz Body Mass Index (BMI) 22.6 Intake & Output: Intake and Output for Last 24 Hours 01/24/23 01/25/23 01/26/23 23:59 23:59 23:59 Intake Total 2203.33 / 2403.33 539.75 / 539.75 Output Total 600 / 1100 950 / 950 1 / 1 Balance 1603.33 / 1303.33 -410.25 / -410.25 -1 / -1 Lab / Micro Data 01/26/23 06:05 01/26/23 06:05 Labs: Laboratory Results - last 24 hr 01/26/23 06:05: WBC 10.5, RBC 3.29 L, Hgb 11.1 L, Hct 34.5 L, MCV 104.9 H, MCH 33.7 H, MCHC 32.2, RDW Std Deviation 50.8 H, RDW Coeff of Shaila 13.2, Plt Count 84 L, MPV 12.1 H, Immature Gran % (Auto) 0.400, Neut % (Auto) 83.1 H, Lymph % (Auto) 11.2 L, [place] % (Auto) 4.9, Eos % (Auto) 0.2, Baso % (Auto) 0.2, Absolute Neuts (auto) 8.8 H, Absolute Lymphs (auto) 1.18, Nucleated RBC % 0.2, Differential Comment SCANNED, Sodium 131 L, Potassium 3.8, Chloride 100, Carbon Dioxide 23.0, Anion Gap 8, BUN 12, Creatinine 0.65, Estim Creat Clear Calc 30.76, Est GFR (MDRD) Af Amer 111, Est GFR (MDRD) Non-Af 92, BUN/Creatinine Ratio 18.6, Glucose 122 H, Calcium 8.4 L Physical Exam Const alert, oriented x3 and no apparent distress Constitutional Narrative: frail General Appearance: cooperative Orientation / Consciousness: confused HEENT normocephalic, head/scalp atraumatic, moist oral mucous membranes, oropharynx normal and gingiva normal Eyes PERRL and EOMs intact bilaterally Neck no lymphadenopathy, supple and no JVD Lymph Lymphatic: no lymphadenopathy noted and no lymphedema noted Resp normal respiratory effort, normal air movement and clear to auscultation bilaterally Cardio regular rate, regular rhythm, S1 normal heart sound, S2 normal heart sound and no murmurs GI normal to inspection, nondistended, normoactive bowel sounds, soft to palpation, non-tender and non-distended Extremity normal capillary refill and no clubbing, cyanosis or edema Extremity Narrative: RUE in sling, Skin General Skin Exam: no breakdown Neuro CN's II-XII intact bilaterally, no focal motor deficits and no sensory deficits noted Psych cooperative Psych Narrative: confused Appearance: appropriate Assessment & Plan Assessment/Plan (1) Injury due to fall: (2) Nondisplaced fracture of proximal end of right humerus: PLAN: Plan #NOn displaced fracture of right proximal humerus * due to mechanical fall * has fallen several times, usually at her boyfriend's house * lives alone. * imaging done showed comminuted fractures of the humeral head including a fragment of the greater tuberosity, and a probable nondisplaced fracture through the surgical neck of the humerus. * xray of the hip and pelvis showed no evidence of fracture * PO tylenol, PO oxycodone and IV morphine prn for pain * fall precautions * xray of the right elbow showed no evidence of fracture. * will need follow up orthopedics on outpatient basis * #Hypokalemia: resolved. #History of afib * on metoprolol and eliquis * now agreeable to SNF; * #Thrombocytopenia: * Platelets were 112 on admission and now down to 90. * platelets down to 84 today. Gradually trending downwards * no known exposure to heparin or lovenox * He had only records we have in the ED so I do not know if this is a true baseline which is an acute thrombocytopenia. * Asymptomatic for now. * If it drops further, will consider extensive workup DVT prophylaxis: on eliquis COde status; full code * * Disposition: patient and family now agreeable to placement as she is unable to care for herself at home, and her daughters cant be with her 20/12 to provide round the clock care. Awaiting placement. * Charges/Coding Visit Charges Inpatient E&M: 30258 Subs Hosp L2
--- NOTE | 2023-01-26 11:56 | CASEMGMT ---
Addendum entered by Nubia Marin 01/26/23 13:53: Social Work Per physician, pt is ready for discharge today. Discharge orders faxed to TCU and updated on admission. SW met with pt and sister and updated that pt will move to TCU today. Nursing advised. Disposition: TCU, skilled level of care RENARD Townsend Original Note: Social Work Precert has been obtained for admission to TCU. Pt's daughter updated and physician notified. Plan: TCU, when medically ready RENARD Townsend
--- NOTE | 2023-01-26 12:22 | TREXTCAR_ITS ---
Diet Diet Order/Speech Therapy: 01/23/23 17:34 Diet: Cardiac - Heart Healthy Food consistency:: Regular Liquid Consistency:: Regular/Thin Routine Orders/Code Status Enema Type: Fleetz Enema Frequency: Daily PRN Suppository Type: Dulcolax 10mg Suppository Frequency: Daily PRN O2 Frequency: PRN Keep PO Greater than or Equal to (%): 90 Wound(s) right elbow: Wound Type: Skin Tear Therapies Weight Bearing: Weight bearing as tolerated Physical Therapy: Eval and Treat Occupational Therapy: Eval and Treat Problem/Diagnosis (1) Injury due to fall: Status: Acute Code(s): W19.XXXA - Unspecified fall, initial encounter (2) Nondisplaced fracture of proximal end of right humerus: Status: Acute Code(s): S42.201A - Unspecified fracture of upper end of right humerus, initial encounter for closed fracture Plan #NOn displaced fracture of right proximal humerus * due to mechanical fall * has fallen several times, usually at her boyfriend's house * lives alone. * imaging done showed comminuted fractures of the humeral head including a fragment of the greater tuberosity, and a probable nondisplaced fracture through the surgical neck of the humerus. * xray of the hip and pelvis showed no evidence of fracture * PO tylenol, PO oxycodone and IV morphine prn for pain * fall precautions * xray of the right elbow showed no evidence of fracture. * will need follow up orthopedics on outpatient basis * #Hypokalemia: resolved. #History of afib * on metoprolol and eliquis * now agreeable to SNF; * #Thrombocytopenia: * Platelets were 112 on admission and now down to 90. * platelets down to 84 today. Gradually trending downwards * no known exposure to heparin or lovenox * He had only records we have in the ED so I do not know if this is a true baseline which is an acute thrombocytopenia. * Asymptomatic for now. * If it drops further, will consider extensive workup DVT prophylaxis: on eliquis COde status; full code * * Disposition: patient and family now agreeable to placement as she is unable to care for herself at home, and her daughters cant be with her 20/12 to provide round the clock care. Awaiting placement. * Allergies/Procedures Done in Hospital Allergies Penicillins Allergy (Intermediate, Verified 01/23/23 15:38) HIVES cefuroxime Allergy (Mild, Verified 01/23/23 15:38) Itching clindamycin Allergy (Mild, Verified 01/23/23 15:38) Itching nitrofurantoin Adverse Reaction (Verified 01/23/23 15:38) GI UPSET prednisone Adverse Reaction (Verified 01/23/23 15:38) CONFUSION Sulfa (Sulfonamide Antibiotics) Adverse Reaction (Verified 01/23/23 15:38) DIARRHEA tramadol Adverse Reaction (Verified 01/23/23 15:38) DIZZINESS, INSOMNIA zolpidem Adverse Reaction (Verified 01/23/23 15:38) CONFUSION Procedures: None Type of Care/Length of Stay Estimated LOS: Convalescent Care Less Than 30 days Type of Care Needed: Skilled Rehab Potential: Fair Prognosis: Fair Additional Orders/Day of Discharge Day of Discharge: 01/26/23 Discharge Plan Admission Admit Date/Time: 01/23/23 16:58 Primary Reason for Your Visit: mechanical fall, right multifragmented fractures of the humeral head Attending Provider: Cora Lama Primary Care Provider: Odin Bolton Instructions Forms: [facility] Patient Instructions: ED Fracture, Shoulder Discharge Orders/Prescriptions Prescriptions: New hydrocodone-acetaminophen [hydrocodone-acetaminophen] 5-325 mg tablet 1 tab PO Q6H PRN PRN (Reason: Pain) 5 Days Qty: 20 0RF loperamide 2 mg capsule 2 mg PO Q6H PRN (Reason: loose stool) Qty: 30 0RF No Action Eliquis 2.5 mg tablet 2.5 mg PO BID Patient Comments: TAKE 1 TABLET BY MOUTH TWICE DAILY furosemide 20 mg tablet 20 mg PO DAILY Patient Comments: TAKE 1 TABLET BY MOUTH THREE TIMES A WEEK (TUESDAY, TUESDAY, AND TUESDAY) metoprolol succinate 25 mg tablet extended release 24 hr 25 mg PO DAILY Patient Comments: TAKE 1 TABLET BY MOUTH ONCE DAILY allopurinol 300 mg tablet 300 mg PO DAILY Patient Comments: TAKE 1 TABLET BY MOUTH ONCE DAILY Versatile Rich Cream 4 applic TOPICAL .weekly Patient Comments: APPLY 1 GRAM (4 CLICKS)IVAGINALLY TWICE WEEKLYL fluoxetine 20 mg capsule 20 mg PO DAILY Patient Comments: TAKE 1 CAPSULE BY MOUTH ONCE DAILY IN THE MORNING pantoprazole 40 mg tablet,delayed release (DR/EC) 40 mg PO DAILY Patient Comments: TAKE 1 TABLET BY MOUTH IN THE MORNING BEFORE BREAKFAST Referrals / Follow Up: Odin Bolton DO [Primary Care Provider] - Rip Stein DO [Med Staff - Active Staff] - 5-7 Days Disposition Disposition (needs filled in before D/C Order can be placed): [facility] Facility
--- NOTE | 2023-01-26 12:23 | DS.PCM_ITS ---
Providers Date of Admission: 01/23/23 Date of Discharge: 01/26/23 Primary Care Physician: Dr. Odin Bolton, Reason For Visit: INTRACTABLE PAIN DUE TO MECHANICAL FALL Diagnosis Discharge Diagnosis (1) Injury due to fall: Status: Acute Code(s): W19.XXXA - Unspecified fall, initial encounter (2) Nondisplaced fracture of proximal end of right humerus: Status: Acute Code(s): S42.201A - Unspecified fracture of upper end of right humerus, initial encounter for closed fracture Plan #NOn displaced fracture of right proximal humerus * due to mechanical fall * has fallen several times, usually at her boyfriend's house * lives alone. * imaging done showed comminuted fractures of the humeral head including a fragment of the greater tuberosity, and a probable nondisplaced fracture through the surgical neck of the humerus. * xray of the hip and pelvis showed no evidence of fracture * PO tylenol, PO oxycodone and IV morphine prn for pain * fall precautions * xray of the right elbow showed no evidence of fracture. * will need follow up orthopedics on outpatient basis * #Hypokalemia: resolved. #History of afib * on metoprolol and eliquis * now agreeable to SNF; * #Thrombocytopenia: * Platelets were 112 on admission and now down to 90. * platelets down to 84 today. Gradually trending downwards * no known exposure to heparin or lovenox * He had only records we have in the ED so I do not know if this is a true baseline which is an acute thrombocytopenia. * Asymptomatic for now. * If it drops further, will consider extensive workup DVT prophylaxis: on eliquis COde status; full code * * Disposition: patient and family now agreeable to placement as she is unable to care for herself at home, and her daughters cant be with her 20/12 to provide round the clock care. Awaiting placement. * Medications at Discharge Home Medications allopurinol 300 mg tablet 300 mg PO DAILY 01/23/23 apixaban 2.5 mg tablet (Eliquis) 2.5 mg PO BID 01/23/23 cream base no.175 (bulk) (Versatile Rich topical cream) 4 applic topical .weekly 01/23/23 fluoxetine 20 mg capsule 20 mg PO DAILY 01/23/23 furosemide 20 mg tablet 20 mg PO DAILY 01/23/23 hydrocodone-acetaminophen 5-325mg 5mg-325mg 1 tab PO Q6H PRN PRN Pain 5 days #20 TABLETS 01/23/23 metoprolol succinate 25 mg tablet,extended release 24 hr 25 mg PO DAILY 01/23/23 pantoprazole 40 mg tablet,delayed release 40 mg PO DAILY 01/23/23 loperamide 2 mg capsule 2 mg PO Q6H PRN loose stool #30 caps 01/26/23 Hospital Course Operations None Procedures None Summary of Care Provided Minutes Spent on Discharge: 50 Hospital Course: ALICIA TIWARI, is a 87 F with a PMH as outlined who presents via the ED on 01/23/2023 with a complaint of mechanical fall. She fell and landed on her right side. She denied hitting her head, and denied any dizziness, lightheadedness, shortness of breath or any such complaints. She did admit to pain in her RUE and RLE and couldnt weight bear due to pain. She came in to the ED for evaluation. Her daughters were by her bedside, and stated patient had had similar previous falls whilst at her boyfriend's house. THis current fall was also at her boyfriend's house. She is on eliquis. She denies hitting her head. Vitals in the ED were temp of 97.4F, VA of 81, BP of 114/51, RR of 16 and pulse ox of 94% on room air. CBC showed hb of 13.2, wbc of 7.4, platelets of 112. Chemistry showed sodium of 139, bicarb of 26 and Cr of 1.08. Pelvic xray was normal and showed no evidence of fracture. Xray of the RUE showed m ultifragmented fractures of the humeral head and likely through the humeral neck without significant displacement. SHe was to be discharged fro the ED but was unable to weight bear due to pain. Family was willing to take her home to care for her, but were concerned about her significant pain. She was admitted to be managed for debility and intractable pain due to mechanical fall and right proximal comminuted humeral fracture. She was given pain medication. Pain control gradually improved and she felt better. Patient and family were initially insistent on her going home but daughter subsequently agreed for her to go to acute rehab facility for intensive rehab to enable her to go home. Plan was for her to follow-up with orthopedics on outpatient basis. Her arm remained in the sling and she was discharged to [facility] facility on 01/26/2023. She is follow-up with orthopedic surgeon outpatient basis and was referred to Dr. Nelson to see him within 1-2 weeks.She was given a script for PO hydrocodone/acetaminophen 5 325 mg 1 tab every 6 hours as needed for total of 20 tablets for 5 days. It was discussed with family about possibly stopping Eliquis in light of her falls but since she is going to a [facility]dc facility which can be monitored more closely, it may be prudent to keep her overnight until this discussion its had with the on outpatient basis with your PCP to discuss the risk versus benefits of continuing on Eliquis especially in light of falls. Patient seen and examined prior to discharge. She complained of some diarrhea overnight, but otherwise complaints and had an uneventful night. Review of systems otherwise negative. Labs and vitals reviewed. Home medications reviewed and reconciled. Physical Exam Const alert, oriented x3 and no apparent distress Constitutional Narrative: frail General Appearance: cooperative, comfortable and well kempt Orientation / Consciousness: awake Exam Limitations: no limitations HEENT normocephalic, head/scalp atraumatic, hearing grossly normal bilaterally, moist oral mucous membranes, oropharynx normal and gingiva normal Mouth: oral and palatal mucosa normal Eyes PERRL and EOMs intact bilaterally Neck no lymphadenopathy, supple and no JVD Lymph Lymphatic: no lymphadenopathy noted and no lymphedema noted Resp normal respiratory effort, normal air movement and clear to auscultation bilaterally Cardio regular rate, regular rhythm, S1 normal heart sound, S2 normal heart sound and no murmurs GI normal to inspection, nondistended, normoactive bowel sounds, soft to palpation, non-tender and non-distended Extremity normal capillary refill and no clubbing, cyanosis or edema Extremity Narrative: RUE in sling, Skin no rashes or lesions noted General Skin Exam: no breakdown Neuro CN's II-XII intact bilaterally, no focal motor deficits and no sensory deficits noted Sensorium / Orientation: awake and alert Motor Exam: strength 5/5 throughout Psych cooperative Psych Narrative: confused Weight / BMI Weight Weight: 123 lb 10.869 oz Body Mass Index (BMI) 22.6 ABG / Lab / Microbiology Data 01/26/23 06:05 01/26/23 06:05 Laboratory: Laboratory Results - last 24 hr 01/26/23 06:05: WBC 10.5, RBC 3.29 L, Hgb 11.1 L, Hct 34.5 L, MCV 104.9 H, MCH 33.7 H, MCHC 32.2, RDW Std Deviation 50.8 H, RDW Coeff of Shaila 13.2, Plt Count 84 L, MPV 12.1 H, Immature Gran % (Auto) 0.400, Neut % (Auto) 83.1 H, Lymph % (Auto) 11.2 L, Hughes % (Auto) 4.9, Eos % (Auto) 0.2, Baso % (Auto) 0.2, Absolute Neuts (auto) 8.8 H, Absolute Lymphs (auto) 1.18, Nucleated RBC % 0.2, Differential Comment SCANNED, Sodium 131 L, Potassium 3.8, Chloride 100, Carbon Dioxide 23.0, Anion Gap 8, BUN 12, Creatinine 0.65, Estim Creat Clear Calc 30.76, Est GFR (MDRD) Af Amer 111, Est GFR (MDRD) Non-Af 92, BUN/Creatinine Ratio 18.6, Glucose 122 H, Calcium 8.4 L D/C Instructions Discharge Diet: Low fat / Low cholesterol Discharge Activity: Return to Normal Activity Weight Bearing Status: Weight bearing as tolerated Call your doctor if you observe: Fever of 101 or Higher, Shortness of breath, Dizziness, Swelling in the ankles and Chest pain Meaningful Use Info Meaningful Use Diagnoses (Choose all that apply): None applicable Discharge Plan Admission Admit Date/Time: 01/23/23 16:58 Primary Reason for Your Visit: mechanical fall, right multifragmented fractures of the humeral head Attending Provider: Cora Lama Primary Care Provider: Odin Bolton Instructions Forms: [employer] Patient Instructions: ED Fracture, Shoulder Discharge Orders/Prescriptions Prescriptions: New hydrocodone-acetaminophen [hydrocodone-acetaminophen] 5-325 mg tablet 1 tab PO Q6H PRN PRN (Reason: Pain) 5 Days Qty: 20 0RF loperamide 2 mg capsule 2 mg PO Q6H PRN (Reason: loose stool) Qty: 30 0RF No Action Eliquis 2.5 mg tablet 2.5 mg PO BID Patient Comments: TAKE 1 TABLET BY MOUTH TWICE DAILY furosemide 20 mg tablet 20 mg PO DAILY Patient Comments: TAKE 1 TABLET BY MOUTH THREE TIMES A WEEK (TUESDAY, TUESDAY, AND TUESDAY) metoprolol succinate 25 mg tablet extended release 24 hr 25 mg PO DAILY Patient Comments: TAKE 1 TABLET BY MOUTH ONCE DAILY allopurinol 300 mg tablet 300 mg PO DAILY Patient Comments: TAKE 1 TABLET BY MOUTH ONCE DAILY Versatile Rich Cream 4 applic TOPICAL .weekly Patient Comments: APPLY 1 GRAM (4 CLICKS)IVAGINALLY TWICE WEEKLYL fluoxetine 20 mg capsule 20 mg PO DAILY Patient Comments: TAKE 1 CAPSULE BY MOUTH ONCE DAILY IN THE MORNING pantoprazole 40 mg tablet,delayed release (DR/EC) 40 mg PO DAILY Patient Comments: TAKE 1 TABLET BY MOUTH IN THE MORNING BEFORE BREAKFAST Referrals / Follow Up: Odin Bolton DO [Primary Care Provider] - Rip Stein DO [Med Staff - Active Staff] - 5-7 Days Disposition Disposition (needs filled in before D/C Order can be placed): [facility] Facility Charges/Coding Visit Charges Inpatient E&M: 06337 Disch Hosp >30min
--- NOTE | 2023-01-26 12:27 | PHA.DC.MR.R ---
Pharmacy MD Med Reconciliation Pharmacy Service has performed discharge medication reconciliation for this patient upon transfer to TCU The patient's discharge medication list was reviewed for discrepancies and discrepancies were resolved. Medications at Discharge Home Medications allopurinol 300 mg tablet 300 mg PO DAILY 01/23/23 apixaban 2.5 mg tablet (Eliquis) 2.5 mg PO BID 01/23/23 cream base no.175 (bulk) (Versatile Rich topical cream) 4 applic topical .weekly 01/23/23 fluoxetine 20 mg capsule 20 mg PO DAILY 01/23/23 furosemide 20 mg tablet 20 mg PO DAILY 01/23/23 hydrocodone-acetaminophen 5-325mg 5mg-325mg 1 tab PO Q6H PRN PRN Pain 5 days #20 TABLETS 01/23/23 metoprolol succinate 25 mg tablet,extended release 24 hr 25 mg PO DAILY 01/23/23 pantoprazole 40 mg tablet,delayed release 40 mg PO DAILY 01/23/23 loperamide 2 mg capsule 2 mg PO Q6H PRN loose stool #30 caps 01/26/23
[2023-01-26] MEDS: Loperamide 2 MG Capsule PO (12:34)
[2023-01-26 13:35] VITALS: BP 110/52; PULSE 80; RESP 18; TEMP 36.6; O2SAT 93
--- NOTE | 2023-01-26 14:39 | NURSING ---
Report called to Malorie in TCU pt will go to room 2
== END 2023-01-26 14:48 | disposition skilled nursing facility (03) ==
LOC: ED 16:47 → MS3 17:02
PROVIDERS: Admitting Provider Student in an Organized Health Care Education/Training Program; Emergency Provider Emergency Medicine; PCP Family Medicine; Visit Provider Student in an Organized Health Care Education/Training Program
DX: S42.201A Unspecified fracture of upper end of right humerus, initial encounter for closed fracture (principal); I48.91 Unspecified atrial fibrillation; D69.6 Thrombocytopenia, unspecified; S70.01XA Contusion of right hip, initial encounter; W19.XXXA Unspecified fall, initial encounter; R26.2 Difficulty in walking, not elsewhere classified; Y92.019 Unspecified place in single-family (private) house as the place of occurrence of the external cause; R29.6 Repeated falls; Z79.899 Other long term (current) drug therapy; Z79.01 Long term (current) use of anticoagulants; E87.6 Hypokalemia
CPT/HCPCS: 36415; 73030; 73070; 73502; 80048; 81001; 82962; 85025; 90715; 96361; 96374; 96376; 97162; 97166; 97530; 97535; 99221; 99284; J7030; J7050; A4216; G0378

== ENCOUNTER 2023-01-26 15:11 | Inpatient (IN) | payer MEDICARE, SELFPAY ==
[2023-01-26 15:23] VITALS: BP 118/72; PULSE 85; RESP 16; TEMP 36.4; O2SAT 95; BMI 23.8
--- NOTE | 2023-01-26 17:41 | NURSING ---
PT IS BEING COMBATIVE WITH STAFF AND FAMILY AND TRYING TO GET OUT OF BED. IN TO SEE PT AND FAMILY. NEW ORDER ALARMS ON,MATTS TO FLOOR, BED IN LOW POSITION .
[2023-01-26] MEDS: LORazepam 0.5 MG Tablet PO (18:24)
[2023-01-26 18:27] LABS: Absolute Lymphocyte Count 1.27 X10^3/uL (0.83-4.51); Basophil# 0.02 X10^3/uL; Basophil% 0.2 % (0-1); Eosinophil# 0.02 X10^3/uL; Eosinophils% 0.2 % (0-5); Hematocrit 32.5 % (37-47); Hemoglobin 11.1 g/dL (12.0-15.0); Lymphocyte # 1.27 X10^3/ul (0.83-4.51); Lymphocyte % 11.5 % (19-41); Mean Corp Hgb Conc 34.2 g/dL (32-36); Mean Corpuscular Hgb 34.4 pg (27.0-32.0); Mean Corpuscular Volume 100.6 fL (81-99); Monocyte# 0.64 X10^3/uL; Monocyte% 5.8 % (0-10); NRBC Flagged by Analyzer 0 % (0-5); Neutrophil % 81.8 % (47-70); Platelet Count 109 K/mm3 (150-450); RBC Distribution Width SD 48.1 fl (35.1-43.9); Red Blood Count 3.23 M/mm3 (4.2-5.4)
[2023-01-26 18:29] LABS: POSITIVE COUNT NO; POSITIVE DIFFERENTIAL NO; POSITIVE MORPHOLOGY NO
[2023-01-26 18:37] LABS: Anion Gap 9 (5-15); BUN 13 mg/dL (7-18); BUN/Creat Ratio 19.3 RATIO (10-20); Calcium,Total 8.4 mg/dL (8.5-10.1); Chloride 95 mmol/L (98-107); Creatinine, Serum 0.67 mg/dL (0.55-1.02); EST Glomerular Filtration Rate 88 mL/min (>60); Est Glom Filt Rate - Afr Amer 106 mL/min (>60); Estimated Creatinine Clearance 30.76 ml/min; Glucose 135 mg/dL (74-106); Potassium 3.1 mmol/L (3.5-5.1); Sodium Level 129 mmol/L (136-145)
[2023-01-26 19:28] LABS: Osmolality, Serum 270 mOsm/KG (280-301)
[2023-01-26 19:57] LABS: Bacteria 0 SEEN /hpf (None Seen); Mucous, Urine 0 SEEN /hpf (<or=2+); Red Blood Cells-Urine 0 SEEN /hpf (0-5); Squamous Epithelial Cells - UA 0 SEEN /hpf (5-10); White Blood Cells 0 SEEN /hpf (0-5)
[2023-01-26 20:04] LABS: Color, Urine Yellow (Yellow); Glucose, Dipstick Normal (Normal); Ketone-Dipstick 15 mg/dl (Negative); Leukocyte Esterase-Dipstick Negative /ul (Negative); Nitrite-Dipstick Negative (Negative); Occult Blood-Urine 25 /ul (Negative); Protein-Dipstick 15 mg/dl (Negative); Urine Bilirubin Dipstick Negative (Negative); Urine Clarity Clear (Clear); Urine Urobilinogen Normal (Normal)
[2023-01-26 20:07] LABS: Urine Sodium 62 mmol/L (Not Establ.)
[2023-01-26] MEDS: Acetaminophen 500 MG Tablet 1000 MG PO (20:24)
[2023-01-26] MEDS: APIXABAN 2.5 MG TABLET (WCH) PO (20:24)
[2023-01-26] MEDS: Menthol/Lanolin/Calamine/Znox 113 GM Tube 1 APPLIC TOPICAL (20:32)
--- NOTE | 2023-01-26 20:37 | HP.PCM_ITS ---
HPI - General General Date of Admission: 01/26/23 Date of Service: 01/26/23 Chief Complaint: Here for rehabilitation. HPI Narrative 01/23/2023 ALICIA TIWARI, is a 87 Female who presents to [facility] Emergency Department with fall. Fall, right shoulder pain, right hip pain, no head injury, no loss of consciousness. Morphine given. X-ray shows right proximal humerus fracture. X-ray right hip negative. 01/23/2023 Admit to Hospital. Tylenol, Oxycodone, Morphine for pain. X-ray right elbow for pain. 01/24/2023 Right upper extremity pain. X-ray right elbow negative for fracture. 01/25/2023 Mild confusion, complained of pain. Metoprolol, Eliquis for atrial fibrillation. Platelets from 112 to 90. PT/OT for SNF. 01/26/2023 Admit to TCU with debility, here for rehabilitation, strengthening, prior to discharge home alone. Upon arrival, resident is confused. She is trying to get out of bed, difficult to direct, she tried kicking nursing home manager when she was put back to bed. I spoke with 2 daughters. They noted it is unknown if resident hit her head during the fall, requested a CT head. I agreed with CT head, but will need precert prior to getting CT head done. Daughters also state resident has not sl ept for 3 days, and did not eat anything today. Workup so far shows progressive hyponatremia with sodium of 129. Urinalysis pending. [facility] Medical History (Updated 01/26/23 @ 20:[address] Justin Muhammad MD) Atrial fibrillation Contusion of right hip Debility GERD (gastroesophageal reflux disease) Gout Nondisplaced fracture of proximal end of right humerus Home Medications allopurinol 300 mg tablet 300 mg PO DAILY Gout 01/23/23 [History Last Taken 01/23/23] apixaban 2.5 mg tablet (Eliquis) 2.5 mg PO BID Anticoagulant 01/23/23 [History Last Taken 01/26/23 08:20] cream base no.175 (bulk) (Versatile Rich topical cream) 4 applic topical .weekly Check with Primary Doctor 01/23/23 [History Last Taken 01/23/23] fluoxetine 20 mg capsule 20 mg PO DAILY Mood 01/23/23 [History Last Taken 12/30 08:20] furosemide 20 mg tablet 20 mg PO DAILY Edema 01/23/23 [History Last Taken 01/26/23 08:20] hydrocodone-acetaminophen 5-325mg 5mg-325mg 1 tab PO Q6H PRN PRN Pain 5 days #20 TABLETS 01/23/23 [Rx Last Taken Unknown] metoprolol succinate 25 mg tablet,extended release 24 hr 25 mg PO DAILY BP 0 01/23/23 [History Last Taken 01/26/23 08:20] pantoprazole 40 mg tablet,delayed release 40 mg PO DAILY GERD 01/23/23 [History Last Taken 01/26/23 08:20] loperamide 2 mg capsule 2 mg PO Q6H PRN loose stool #30 caps 01/26/23 [Rx Last Taken Unknown] Allergy/AdvReac Type Severity Reaction Status Date / Time Penicillins Allergy Intermediate HIVES Verified 01/23/23 15:38 cefuroxime Allergy Mild Itching Verified 01/23/23 15:38 clindamycin Allergy Mild Itching Verified 01/23/23 15:38 nitrofurantoin AdvReac GI UPSET Verified 01/23/23 15:38 prednisone AdvReac CONFUSION Verified 01/23/23 15:38 Sulfa (Sulfonamide AdvReac DIARRHEA Verified 01/23/23 15:38 Antibiotics) tramadol AdvReac DIZZINESS, Verified 01/23/23 15:38 INSOMNIA zolpidem AdvReac CONFUSION Verified 01/23/23 15:38 Social History (Updated 01/26/23 @ 20:[address] Justin Muhammad MD) household members: none Smoking Status: Former smoker alcohol intake: never substance use type: does not use ROS Review of Systems ROS Unobtainable: due to encephalopathy Constitutional Constitutional: Denies chills, fever(s) or weight gain ENT HEENT: Denies headache(s), nasal congestion or nasal discharge Cardiovascular Cardiovascular: Denies chest pain or palpitations Respiratory/Chest Respiratory/Chest: Denies cough, excessive phlegm production or shortness of breath with exertion Gastrointestinal Gastrointestinal: Denies abdominal pain, nausea or vomiting Genitourinary Genitourinary: Denies dysuria Musculoskeletal Musculoskeletal: Denies joint pain or joint swelling Integumentary Integumentary: Denies rash or wounds Neurologic Neurologic: Denies focal weakness, numbness or tingling Psychiatric Psychiatric: Denies anxiety, auditory hallucinations, depression, homicidal ideation or suicidal ideation Vital Signs Vital Signs Vital Signs: 01/26/23 15:23 01/26/23 15:23 Temperature 97.6 F L Temperature Source Temporal Pulse Rate 85 85 Pulse Rhythm Irregular Pulse Strength Normal (2+) Respiratory Rate 16 16 Respiratory Effort Normal Respiratory Depth Normal Respiratory Pattern Normal Blood Pressure 118/72 Blood Pressure Mean 87 Blood Pressure Source Monitor Blood Pressure Position Semi-Fowlers Blood Pressure Location Left Arm Pulse Ox 95 95 Oxygen Delivery Method Room Air Room Air Weight Weight: 58.967 kg Body Mass Index (BMI) 23.8 Physical Exam Const alert General Appearance: cooperative HEENT normocephalic Eyes PERRL and EOMs intact bilaterally Neck supple, no JVD and no carotid bruits Resp normal respiratory effort, normal air movement and clear to auscultation bilaterally Cardio regular rate and regular rhythm GI normal to inspection, nondistended, normoactive bowel sounds, non-tender and non-distended Extremity normal capillary refill General Extremity: Negative for edema Skin no rashes or lesions noted General Skin Exam: no breakdown Psych affect normal Appearance: appropriate Results Lab / Micro Data 01/26/23 18:12 01/26/23 18:12 Labs: Laboratory Results - last 24 hr 01/26/23 18:12: WBC 11.0, RBC 3.23 L, Hgb 11.1 L, Hct 32.5 L, MCV 100.6 H, MCH 34.4 H, MCHC 34.2 D, RDW Std Deviation 48.1 H, RDW Coeff of Shaila 13.0, Plt Count 109 L, MPV 11.0, Immature Gran % (Auto) 0.500, Neut % (Auto) 81.8 H, Lymph % (Auto) 11.5 L, Mccreary % (Auto) 5.8, Eos % (Auto) 0.2, Baso % (Auto) 0.2, Absolute Neuts (auto) 9.0 H, Absolute Lymphs (auto) 1.27, Nucleated RBC % 0, Sodium 129 L , Potassium 3.1 L, Chloride 95 L, Carbon Dioxide 25.0, Anion Gap 9, BUN 13, Creatinine 0.67, Estim Creat Clear Calc 30.76, Est GFR (MDRD) Af Amer 106, Est GFR (MDRD) Non-Af 88, BUN/Creatinine Ratio 19.3, Glucose 135 H, Serum Osmolality 270 L, Calcium 8.4 L 01/26/23 19:40: Ur Random Sodium 62 Assessment & Plan Assessment/Plan (1) Debility: (2) Nondisplaced fracture of proximal end of right humerus: (3) Contusion of right hip: (4) Acute encephalopathy: (5) Hyponatremia: (6) Thrombocytopenia: (7) Atrial fibrillation: (8) Gout: (9) GERD (gastroesophageal reflux disease): PLAN: Plan 87 year old female with below past medical history hospitalized for right proximal humerus fracture, right hip contusion, complicated by encephalopathy, hyponatremia, thrombocytopenia, admitted to TCU with debility, here for rehabilitation, strengthening, prior to discharge home alone. * Debility - PT/OT. * Cognition - ST. * Pain - Tylenol 1000mg q8, Oxycodone 5mg q4h prn pain (6-10). * Bowel - senna/colace 1 tablet bid prn. * Adult immunization - Administer pneumonia vaccine, covid19 vaccine, flu vaccine as appropriate. * DVT prophylaxis - on Eliquis. * Gout - Allopurinol 300mg daily. * Atrial fibrillation - Metoprolol succinate 25mg daily, Eliquis 2.5mg bid. * Nutrition - Ensure Plus 120ml po tidcm. * Encephalopathy - cbcd, bmp, UA. UA negative for infection, send for C+S. CT head tomorrow. * Anxiety/Restlessness/sleep - Lorazepam 0.5mg q4h prn, initiate GDR once stable. * Skin irritation - Calmoseptine topical bid. * GERD - Pantoprazole 40mg daily. * Hyponatremia secondary SIADH - Fluid restriction, trend BMP. * Thrombocytopenia - Platelets improved to 104,000.
[2023-01-26 21:05] LABS: Osmolality, Urine 450 mOsm/KG
--- NOTE | 2023-01-26 21:43 | NURSING ---
Patient with resent lab results reported to Dr. Muhammad. New orders received. Will continue to monitor.
[2023-01-26] MEDS: LORazepam 1 MG Tablet PO (23:29)
[2023-01-26] MEDS: oxyCODONE 5 MG Tablet PO (23:42)
[2023-01-27 07:08] LABS: Absolute Lymphocyte Count 1.77 X10^3/uL (0.83-4.51); Absolute Neutrophil Count 8.4 X10^3/uL (2.0-7.7); Basophil# 0.01 X10^3/uL; Basophil% 0.1 % (0-1); Eosinophil# 0.04 X10^3/uL; Eosinophils% 0.4 % (0-5); Hematocrit 34.7 % (37-47); Hemoglobin 11.8 g/dL (12.0-15.0); Lymphocyte # 1.77 X10^3/ul (0.83-4.51); Mean Corpuscular Hgb 34.3 pg (27.0-32.0); Mean Corpuscular Volume 100.9 fL (81-99); Mean Platelet Vol. 10.8 fl (6.2-12.0); Monocyte# 0.81 X10^3/uL; Monocyte% 7.3 % (0-10); NRBC Flagged by Analyzer 0.2 % (0-5); Neutrophil # 8.36 X10^3/uL (2.7-7.7); Neutrophil % 75.6 % (47-70); Platelet Count 111 K/mm3 (150-450); RBC Distribution Width CV 13.1 % (11.6-14.6); RBC Distribution Width SD 47.3 fl (35.1-43.9); Red Blood Count 3.44 M/mm3 (4.2-5.4); White Blood Count 11.1 K/mm3 (4.4-11.0)
[2023-01-27 07:29] LABS: Anion Gap 6 (5-15); BUN 12 mg/dL (7-18); BUN/Creat Ratio 17.4 RATIO (10-20); Calcium,Total 8.8 mg/dL (8.5-10.1); Chloride 95 mmol/L (98-107); Creatinine, Serum 0.69 mg/dL (0.55-1.02); EST Glomerular Filtration Rate 85 mL/min (>60); Est Glom Filt Rate - Afr Amer 103 mL/min (>60); Estimated Creatinine Clearance 30.76 ml/min; Glucose 105 mg/dL (74-106); Potassium 3.3 mmol/L (3.5-5.1); Sodium Level 132 mmol/L (136-145)
--- NOTE | 2023-01-27 08:36 | NURSING ---
Called for auth for head CT. Case #[id number]. Scan approved per insurance, auth #[id number]. Order faxed to CT.
--- NOTE | 2023-01-27 10:03 | PCM.PN.DRR ---
TCU RX Drug Regimen Review Subjective/Objective Subjective/Objective: Subjective: [Alida Martinez is a 87 YOF admitted to TCU on 01/26 for rehabilitation and strengthening prior to discharge home alone. She initially presented to [facility] ED on 01/23 following a fall. ] Objective: Allergies Penicillins Allergy (Intermediate, Verified 01/23/23 15:38) HIVES cefuroxime Allergy (Mild, Verified 01/23/23 15:38) Itching clindamycin Allergy (Mild, Verified 01/23/23 15:38) Itching nitrofurantoin Adverse Reaction (Verified 01/23/23 15:38) GI UPSET prednisone Adverse Reaction (Verified 01/23/23 15:38) CONFUSION Sulfa (Sulfonamide Antibiotics) Adverse Reaction (Verified 01/23/23 15:38) DIARRHEA tramadol Adverse Reaction (Verified 01/23/23 15:38) DIZZINESS, INSOMNIA zolpidem Adverse Reaction (Verified 01/23/23 15:38) CONFUSION Current Medications Generic Name Dose Route Start Last Admin Trade Name Freq PRN Reason Stop Dose Admin Acetaminophen 1,000 mg 01/26/23 22:00 01/27/23 06:18 Acetaminophen 500 Mg Tablet PO Not Given Q8 ELE Allopurinol 300 mg 01/27/23 08:00 Allopurinol 300 Mg Tablet PO DAILYCM [facility] Apixaban 2.5 mg 01/26/23 22:00 01/26/23 20:24 Apixaban 2.5 Mg Tablet ([facility]) PO 2.5 mg BID ELE Administration Bisacodyl 10 mg 01/26/23 15:28 Bisacodyl 10 Mg Suppository RC X1 PRN Constipation Calamine/Phenol 1 applic 01/26/23 22:00 01/26/23 20:32 Menthol/Lanolin/Calamine/Znox 113 Gm Tube TOPICAL 1 applic BID ELE Administration Protocol Lorazepam 0.5 mg 01/27/23 07:56 Lorazepam 0.5 Mg Tablet PO Q4H PRN PRN ANXIETY/RESTLESSNESS/SLEEP Metoprolol Succinate 25 mg 01/27/23 10:00 Metoprolol(Xl)Succ 25 Mg Tablet PO DAILY [facility] Nutritional Formula (Lactose Free) 120 ml 01/26/23 17:45 01/27/23 09:10 Ensure Plus High Protein 120 Ml Liquid PO Not Given TIDCM [facility] Oxycodone HCl 5 mg 01/26/23 19:39 01/26/23 23:42 Oxycodone 5 Mg Tablet PO 5 mg Q4H PRN PRN Administration Pain Score 6-10 Pantoprazole Sodium 40 mg 01/27/23 10:00 Pantoprazole Sodium 40 Mg Tablet PO DAILY ELE Potassium Chloride 20 meq 01/27/23 08:00 Potassium Chloride Oral Tablet 20 Meq PO DAILYCM ELE Sodium Chloride 10 - 40 ml 01/26/23 15:39 0.9% Saline Lock 10 Ml Syringe IV UD PRN SALINE FLUSH Tuberculin PPD 0.1 ml 02/03/23 10:00 Tuberculin,Purif.Prot.Deriv. 50 Tu/Ml Vial ID 02/03/23 10:01 X1 ONE Problem List (Updated 01/26/23 @ 20:[address] Justin Muhammad MD) GERD (gastroesophageal reflux disease) (Acute) Gout (Acute) Atrial fibrillation (Acute) Contusion of right hip (Acute) Nondisplaced fracture of proximal end of right humerus (Acute) Debility (Acute) Thrombocytopenia (Acute) Hyponatremia (Acute) Acute encephalopathy (Acute) Vital Signs Temp Pulse Resp BP Pulse Ox O2 Del Method 97.6 F L 85 16 118/72 95 Room Air 01/26/23 15:23 01/26/23 15:23 01/26/23 15:23 01/26/23 15:23 01/26/23 15:23 01/26/23 15:23 Oxygen Delivery Method Room Air Weight: 58.967 kg Body Mass Index (BMI) 23.8 Sodium 132 mmol/L (136-145) L 01/27/23 06:57 Potassium 3.3 mmol/L (3.5-5.1) L 01/27/23 06:57 Chloride 95 mmol/L (98-107) L 01/27/23 06:57 Carbon Dioxide 31.0 mmol/L (21.0-32.0) 01/27/23 06:57 Anion Gap 6 (5-15) 01/27/23 06:57 BUN 12 mg/dL (7-18) 01/27/23 06:57 Creatinine 0.69 mg/dL (0.55-1.02) 01/27/23 06:57 Est GFR (MDRD) Af Amer 103 mL/min (>60) 01/27/23 06:57 Est GFR (MDRD) Non-Af 85 mL/min (>60) 01/27/23 06:57 BUN/Creatinine Ratio 17.4 RATIO (10-20) 01/27/23 06:57 Glucose 105 mg/dL (74-106) 01/27/23 06:57 Assessment/Plan: Assessment/Plan for indications treated with psychotropic medications: Medical chart and medication regimen reviewed. The following medication irregularities or issues were identified: Current Medications: 1. Pain- Tylenol 1,000 mg po q8h and oxycodone 5 mg po q4h prn for pain (6-10). The resident has received 1 prn dose of oxycodone (01/26) for shoulder pain with a pain score 7/10. Continue to monitor pain and prn usage of oxycodone. 2. Bowel- Bisacodyl 10 mg rectally once as needed for constipation. The resident has not had any prn usage of this medication. There is no BM on file since the resident's admission to TCU. Continue to monitor for s/s of constipation. 3. Atrial fibrillation- Metoprolol succinate 25 mg po daily and Eliquis 2.5 mg po bid. Continue to monitor BP (118/72 mmHg), HR (85 bpm), and for bleeding. 4. Gout- Allopurinol 300 mg po daily. Continue to monitor serum uric acid (none on file) and for skin reactions. 5. GERD- Pantoprazole 40 mg po daily. Continue to monitor bone density, diarrhea, and serum magnesium (none on file). Also encourage patient to try non-pharmacologic ways to reduce gerd symptoms (avoid eating before bed and triggers). 6. Potassium deficiency- Potassium chloride 20 mEq po daily cm. Continue to monitor serum potassium (3.3 mmol/L) and renal function (SCr 0.69 mg/dL and BUN 12 mg/dL). 7. Nutrition- Ensure Plus 120 mL po tidcm. 8. Skin irritation- Calmoseptine ointment topical bid. Psychotropic Medications: 1. Anxiety- Lorazepam 0.5 mg po q4h prn for anxiety/restlessness/sleep. Per provider note, initiate GDR once stable. The resident has not had any prn usage of this medication. If taken, monitor for cognitive impairment, delirium, falls, and fractures (Beer's Criteria), as well as respiratory depression (especially when being used with oxycodone) (Black Box Warning). Recommendation: 1. The resident does not have magnesium levels on file and pantoprazole can cause hypomagnesemia. Please evaluate if clinically appropriate. 2. The resident does not have uric acid levels on file and is taking allopurinol for gout. Please evaluate if clinically appropriate. Date Date of Note:: 01/27/23
--- NOTE | 2023-01-27 10:07 | CASEMGMT ---
Social Work Completed chart review on pt. Pt noted to be very confused and combative. Assessment with pt could not be completed. SW phoned dtr, Chelsey, to obtain information. Discussed code status. Dtr confirms pt expressed full code wishes. MOLST not completed with pt d/t cognitive impairment. Educated to [facility] insurance with NRD 02/01, copays begin days 21-100 at $196/day; continued stay is not guaranteed with each review. DC goal is for pt to return home at [facility]. Boyfriend visits -M and two dtrs see pt daily outside of that. SW will continue to follow for DC planning. Aylin Smith, MARIAJOSE CHUNW
[2023-01-27] MEDS: Potassium Chloride Oral Tablet 20 MEQ PO (11:38)
[2023-01-27] MEDS: APIXABAN 2.5 MG TABLET (WCH) PO ×2 (11:39→21:00)
[2023-01-27] MEDS: Pantoprazole Sodium 40 MG Tablet PO (11:39)
[2023-01-27] MEDS: Allopurinol 300 MG Tablet PO (11:39)
[2023-01-27] MEDS: Ensure Plus High Protein 120 ML LIQUID PO ×2 (11:41→18:07)
[2023-01-27 11:43] VITALS: BP 132/62; PULSE 92
[2023-01-27] MEDS: Metoprolol(XL)Succ 25 MG Tablet PO (11:43)
[2023-01-27] MEDS: Tuberculin,Purif.prot.deriv. 50 TU/ML Vial 0.1 ML ID (11:50)
[2023-01-27 11:56] VITALS: BP 132/62; PULSE 92
[2023-01-27] MEDS: Acetaminophen 500 MG Tablet 1000 MG PO ×2 (13:34→21:00)
[2023-01-27 16:00] VITALS: BP 90/49; PULSE 78; RESP 14; TEMP 35.8; O2SAT 93
[2023-01-27] MEDS: Menthol/Lanolin/Calamine/Znox 113 GM Tube 1 APPLIC TOPICAL ×2 (18:04→21:00)
[2023-01-27 18:11] VITALS: BP 102/66; PULSE 85
[2023-01-27 20:15] VITALS: O2SAT 94
[2023-01-27] MEDS: oxyCODONE 5 MG Tablet PO (20:59)
[2023-01-28] MEDS: oxyCODONE 5 MG Tablet PO ×3 (02:29→21:08)
[2023-01-28] MEDS: Acetaminophen 500 MG Tablet 1000 MG PO ×3 (05:38→21:11)
[2023-01-28 06:16] LABS: Anion Gap 9 (5-15); BUN 15 mg/dL (7-18); BUN/Creat Ratio 25.8 RATIO (10-20); Calcium,Total 8.3 mg/dL (8.5-10.1); Chloride 98 mmol/L (98-107); Creatinine, Serum 0.58 mg/dL (0.55-1.02); EST Glomerular Filtration Rate 104 mL/min (>60); Est Glom Filt Rate - Afr Amer 126 mL/min (>60); Estimated Creatinine Clearance 30.76 ml/min; Glucose 102 mg/dL (74-106); Potassium 2.9 mmol/L (3.5-5.1); Sodium Level 134 mmol/L (136-145)
[2023-01-28 10:45] VITALS: BP 106/52
[2023-01-28] MEDS: Allopurinol 300 MG Tablet PO (10:48)
[2023-01-28] MEDS: APIXABAN 2.5 MG TABLET (WCH) PO ×2 (10:48→21:11)
[2023-01-28 10:49] VITALS: PULSE 63
[2023-01-28] MEDS: Pantoprazole Sodium 40 MG Tablet PO (10:49)
[2023-01-28] MEDS: Metoprolol(XL)Succ 25 MG Tablet PO (10:49)
[2023-01-28] MEDS: Potassium Chloride Oral Tablet 20 MEQ 40 MEQ PO (10:56)
[2023-01-28] MEDS: Potassium Chloride Oral Tablet 20 MEQ PO ×2 (10:57→18:07)
[2023-01-28] MEDS: Ensure Plus High Protein 120 ML LIQUID PO ×3 (10:58→18:07)
[2023-01-28 11:40] VITALS: PULSE 65; RESP 16; O2SAT 95
--- NOTE | 2023-01-28 11:54 | NURSING ---
Combatant Swimmer Note; Activity Asste: Kvng Irwin is independent in her choice of daily activities. Her family will visit daily, she has a large word puzzle she will work on along with watching tv. She welcomes visit from the therapy dog and industrial health engineer when available. At this time due to her pain she has stated she prefers to do independent activities in her room. Staff will remind her of activities and respect her right to say no.
[2023-01-28] MEDS: Menthol/Lanolin/Calamine/Znox 113 GM Tube 1 APPLIC TOPICAL ×2 (12:56→21:11)
--- NOTE | 2023-01-28 13:45 | RAD_ITS ---
STUDY: X-RAY - RIGHT KNEE REASON FOR EXAM: Female, 87 years old. Knee pain following a recent fall. TECHNIQUE: 4 view(s) of the knee. COMPARISON: None. FINDINGS: Normal visualized distal femur. Normal visualized proximal tibia and fibula. Normal proximal tibiofibular articulation. Normal medial femorotibial compartment. Normal lateral femorotibial compartment. There is mild degenerative arthrosis of the patellofemoral articulation. The soft tissue structures are unremarkable. RAD/Knee 3 Views IMPRESSION: Degenerative arthrosis. Electronically Signed: Souleymane Luther MD at 14:09 EDT ,
[2023-01-28 14:47] VITALS: BP 106/49; PULSE 86; RESP 14; TEMP 36.4; O2SAT 95
--- NOTE | 2023-01-28 15:52 | NURSING ---
Addendum entered by Dian Garza 01/28/23 16:18: Pelvis CT case #[id number] Addendum entered by Dian Garza 01/28/23 16:04: Called insurance [employer] for auth for CT scans. Approval received for CT of knee, auth #[id number]. Order faxed to CT. Clinical information requested to approve CT pelvis. Clinicals faxed to [employer] #[phone]. Original Note: Patient has been complaining of bad pain in right lower extremity, reports her right hip and right knee are the worst. She is unable to stand on right leg due to pain. Updated Dr. Muhammad on pain and inability to tolerate weight on RLE. New order for xray right knee. Dr. Muhammad then in room with patient to assess. Patient reported pain to Dr. Muhammad and he gave order for CT pelvis and CT right knee to rule out injury not found on xrays. Daughter at bedside. Updated her and patient that this RN had left VM with Dr. Stein's office about ortho consult, await return call.
--- NOTE | 2023-01-28 17:44 | NS ---
Res drinks 1 bottle ensure / day at home - dislikes most meats and tomato sauce. MST score = 2. Provided copy of daily specials/first choice menu w/ instructions on how to order.
[2023-01-28] MEDS: LORazepam 0.5 MG Tablet PO (21:11)
[2023-01-29] MEDS: Acetaminophen 500 MG Tablet 1000 MG PO ×3 (06:09→19:54)
[2023-01-29] MEDS: Ensure Plus High Protein 120 ML LIQUID PO ×3 (08:45→18:38)
[2023-01-29 09:39] LABS: Anion Gap 3 (5-15); BUN 16 mg/dL (7-18); BUN/Creat Ratio 22.8 RATIO (10-20); Calcium,Total 8.7 mg/dL (8.5-10.1); Chloride 105 mmol/L (98-107); EST Glomerular Filtration Rate 84 mL/min (>60); Est Glom Filt Rate - Afr Amer 101 mL/min (>60); Estimated Creatinine Clearance 30.76 ml/min; Glucose 144 mg/dL (74-106); Potassium 4.3 mmol/L (3.5-5.1); Sodium Level 136 mmol/L (136-145)
[2023-01-29 10:00] VITALS: PULSE 61; RESP 14; O2SAT 96
[2023-01-29] MEDS: oxyCODONE 5 MG Tablet PO ×2 (11:47→18:38)
[2023-01-29 11:48] VITALS: BP 134/78; PULSE 76
[2023-01-29] MEDS: Metoprolol(XL)Succ 25 MG Tablet PO (11:48)
[2023-01-29] MEDS: Potassium Chloride Oral Tablet 20 MEQ PO ×2 (11:49→18:38)
[2023-01-29] MEDS: Pantoprazole Sodium 40 MG Tablet PO (11:49)
[2023-01-29] MEDS: Menthol/Lanolin/Calamine/Znox 113 GM Tube 1 APPLIC TOPICAL ×2 (11:50→19:57)
[2023-01-29] MEDS: APIXABAN 2.5 MG TABLET (WCH) PO ×2 (11:50→19:54)
[2023-01-29] MEDS: Allopurinol 300 MG Tablet PO (11:50)
[2023-01-29 15:57] VITALS: BP 98/55; PULSE 78; RESP 16; TEMP 36.1; O2SAT 94
[2023-01-29] MEDS: LORazepam 0.5 MG Tablet PO (21:30)
[2023-01-30] MEDS: Acetaminophen 500 MG Tablet 1000 MG PO ×3 (05:52→20:12)
[2023-01-30 07:03] LABS: Anion Gap 3 (5-15); BUN 17 mg/dL (7-18); BUN/Creat Ratio 22.3 RATIO (10-20); Chloride 105 mmol/L (98-107); Creatinine, Serum 0.76 mg/dL (0.55-1.02); EST Glomerular Filtration Rate 76 mL/min (>60); Est Glom Filt Rate - Afr Amer 92 mL/min (>60); Estimated Creatinine Clearance 30.76 ml/min; Glucose 102 mg/dL (74-106); Potassium 4.4 mmol/L (3.5-5.1); Sodium Level 137 mmol/L (136-145)
[2023-01-30 10:31] VITALS: PULSE 70
[2023-01-30] MEDS: Allopurinol 300 MG Tablet PO (10:31)
[2023-01-30] MEDS: Pantoprazole Sodium 40 MG Tablet PO (10:31)
[2023-01-30] MEDS: Metoprolol(XL)Succ 25 MG Tablet PO (10:31)
[2023-01-30] MEDS: Ensure Plus High Protein 120 ML LIQUID PO ×3 (10:31→18:30)
[2023-01-30] MEDS: Potassium Chloride Oral Tablet 20 MEQ PO ×2 (10:32→18:31)
[2023-01-30] MEDS: Menthol/Lanolin/Calamine/Znox 113 GM Tube 1 APPLIC TOPICAL ×2 (10:32→20:17)
[2023-01-30] MEDS: APIXABAN 2.5 MG TABLET (WCH) PO ×2 (10:33→20:12)
[2023-01-30] MEDS: oxyCODONE 5 MG Tablet PO ×2 (10:43→18:33)
[2023-01-30 14:17] VITALS: BP 104/56; PULSE 77; RESP 18; TEMP 36.3; O2SAT 95
[2023-01-30 20:00] VITALS: RESP 16; O2SAT 95
[2023-01-30] MEDS: LORazepam 0.5 MG Tablet PO (20:12)
[2023-01-31] MEDS: oxyCODONE 5 MG Tablet PO ×3 (03:36→18:14)
[2023-01-31] MEDS: Acetaminophen 500 MG Tablet 1000 MG PO ×3 (06:20→21:09)
[2023-01-31] MEDS: Ensure Plus High Protein 120 ML LIQUID PO ×3 (07:58→18:13)
[2023-01-31] MEDS: Potassium Chloride Oral Tablet 20 MEQ PO ×2 (07:58→18:13)
[2023-01-31] MEDS: Allopurinol 300 MG Tablet PO (07:59)
[2023-01-31] MEDS: Menthol/Lanolin/Calamine/Znox 113 GM Tube 1 APPLIC TOPICAL ×2 (07:59→21:13)
[2023-01-31 08:10] LABS: Anion Gap 4 (5-15); BUN 18 mg/dL (7-18); BUN/Creat Ratio 24.9 RATIO (10-20); Calcium,Total 8.8 mg/dL (8.5-10.1); Chloride 106 mmol/L (98-107); Creatinine, Serum 0.72 mg/dL (0.55-1.02); EST Glomerular Filtration Rate 81 mL/min (>60); Est Glom Filt Rate - Afr Amer 98 mL/min (>60); Estimated Creatinine Clearance 30.76 ml/min; Glucose 102 mg/dL (74-106); Potassium 4.9 mmol/L (3.5-5.1); Sodium Level 139 mmol/L (136-145)
[2023-01-31 08:33] VITALS: PULSE 75; RESP 18; O2SAT 97
[2023-01-31 10:00] VITALS: BP 98/54; PULSE 80
[2023-01-31] MEDS: Pantoprazole Sodium 40 MG Tablet PO (10:00)
[2023-01-31] MEDS: APIXABAN 2.5 MG TABLET (WCH) PO ×2 (10:00→21:09)
[2023-01-31 15:48] VITALS: BP 107/58; PULSE 72; RESP 16; TEMP 36.3; O2SAT 95
[2023-01-31] MEDS: LORazepam 0.5 MG Tablet PO (21:09)
[2023-02-01] MEDS: Acetaminophen 500 MG Tablet 1000 MG PO ×3 (06:33→20:23)
[2023-02-01] MEDS: Ensure Plus High Protein 120 ML LIQUID PO ×4 (09:06→17:29)
[2023-02-01] MEDS: Allopurinol 300 MG Tablet PO (09:07)
[2023-02-01] MEDS: Potassium Chloride Oral Tablet 20 MEQ PO ×2 (09:07→17:28)
[2023-02-01] MEDS: APIXABAN 2.5 MG TABLET (WCH) PO ×2 (09:08→20:23)
[2023-02-01] MEDS: Menthol/Lanolin/Calamine/Znox 113 GM Tube 1 APPLIC TOPICAL ×2 (09:08→20:23)
[2023-02-01] MEDS: Pantoprazole Sodium 40 MG Tablet PO (09:08)
[2023-02-01 09:09] VITALS: BP 103/46; PULSE 70
[2023-02-01] MEDS: Metoprolol(XL)Succ 25 MG Tablet PO (09:09)
--- NOTE | 2023-02-01 09:17 | NURSING ---
approval was given for CT pelvis via phone call from [facility] #[id number]. any questions call
[2023-02-01 10:31] VITALS: BMI 22.4
[2023-02-01 13:22] VITALS: BP 112/55; PULSE 67; RESP 16; TEMP 36.3; O2SAT 98
--- NOTE | 2023-02-01 14:24 | NURSING ---
Addendum entered by Dian Garza 02/01/23 15:54: Call back from [place], per Dr. Stein patient ok to be WBAT RLE, no active abduction x6 weeks. Original Note: Called Dr. Stein's office and spoke with staff, discussed pelvis CT results. They will reach out to Dr. Stein and call back w/ his recommendations/orders.
[2023-02-01] MEDS: oxyCODONE 5 MG Tablet PO ×2 (14:57→21:59)
[2023-02-02] MEDS: Acetaminophen 500 MG Tablet 1000 MG PO ×3 (05:42→21:11)
[2023-02-02] MEDS: oxyCODONE 5 MG Tablet PO ×2 (07:11→21:12)
[2023-02-02] MEDS: Allopurinol 300 MG Tablet PO (09:21)
[2023-02-02] MEDS: Potassium Chloride Oral Tablet 20 MEQ PO ×2 (09:21→18:19)
[2023-02-02] MEDS: APIXABAN 2.5 MG TABLET (WCH) PO ×2 (09:21→21:13)
[2023-02-02 09:22] VITALS: BP 114/51; PULSE 79
[2023-02-02] MEDS: Metoprolol(XL)Succ 25 MG Tablet PO (09:22)
[2023-02-02] MEDS: Pantoprazole Sodium 40 MG Tablet PO (09:22)
[2023-02-02] MEDS: Menthol/Lanolin/Calamine/Znox 113 GM Tube 1 APPLIC TOPICAL ×2 (09:25→21:15)
--- NOTE | 2023-02-02 09:54 | NURSING ---
EDUCATED PT AND FAMILY ON PT FLUID RESTRICTIONS. PT AND FAMILY STATED THEY UNDERSTOOD. RN AWARE
--- NOTE | 2023-02-02 11:25 | NURSING ---
Offered Covid booster, education about vaccine provided. Patient refuses at this time.
[2023-02-02] MEDS: Ensure Plus High Protein 120 ML LIQUID PO ×2 (11:41→18:21)
--- NOTE | 2023-02-02 11:52 | NURSING ---
Formula Checker Note; MDS Complete
--- NOTE | 2023-02-02 12:43 | NURSING ---
Call from Dr. Stein's office reporting that he wants a repeat xray of right shoulder and he will be in to evaluate patient here on TCU today. Xray ordered. Family updated- they are very grateful that MD coming to TCU.
[2023-02-02 13:07] VITALS: BP 114/59; PULSE 76; RESP 16; TEMP 36.3; O2SAT 98
--- NOTE | 2023-02-02 13:41 | CON.PCM.OR_ITS ---
HPI Consult Data Date of Consult: 02/02/23 HPI Narrative Reason for Consultation: Right proximal humerus fracture and right greater trochanter fracture HPI Narrative: ALICIA TIWARI, is a 87 F who presents After a mechanical fall from standing height onto her right side on 01/23/2023. She denied any head injury or loss consciousness. She was brought to the emergency department at [facility]. X-rays revealed a comminuted right proximal femur fracture. Initial x-rays of her right hip were normal. Patient was admitted and subsequently discharged to TCU. Persistent right hip pain prompted a CT scan of the right lower extremity and pelvis which demonstrated a nondisplaced greater trochanter fracture of the right femur. I was consulted. I saw the patient in the TCU. She denied any other pain at time my examination. Patient has been immobilized in the sling for the right upper extremity. She denies any fevers, chills, nausea vomiting, chest pain or shortness of breath. [facility] Medical History (Updated 02/02/23 @ 13:[address] Rip Stein, ) Atrial fibrillation Contusion of right hip Debility GERD (gastroesophageal reflux disease) Gout Nondisplaced fracture of proximal end of right humerus Home Medications allopurinol 300 mg tablet 300 mg PO DAILY Gout 01/23/23 [History Last Taken 01/23/23] apixaban 2.5 mg tablet (Eliquis) 2.5 mg PO BID Anticoagulant 01/23/23 [History Last Taken 01/26/23 08:20] cream base no.175 (bulk) (Versatile Rich topical cream) 4 applic topical .weekly Check with Primary Doctor 01/23/23 [History Last Taken 01/23/23] fluoxetine 20 mg capsule 20 mg PO DAILY Mood 01/23/23 [History Last Taken 01/26/23 08:20] furosemide 20 mg tablet 20 mg PO DAILY Edema 01/23/23 [History Last Taken 01/26/23 08:20] hydrocodone-acetaminophen 5-325mg 5mg-325mg 1 tab PO Q6H PRN PRN Pain 5 days #20 TABLETS 01/23/23 [Rx Last Taken Unknown] metoprolol succinate 25 mg tablet,extended release 24 hr 25 mg PO DAILY BP 01/23/23 [History Last Taken 01/26/23 08:20] pantoprazole 40 mg tablet,delayed release 40 mg PO DAILY GERD 01/23/23 [History Last Taken 01/26/23 08:20] loperamide 2 mg capsule 2 mg PO Q6H PRN loose stool #30 caps 01/26/23 [Rx Last Taken Unknown] Allergy/AdvReac Type Severity Reaction Status Date / Time Penicillins Allergy Intermediate HIVES Verified 01/23/23 15:38 cefuroxime Allergy Mild Itching Verified 01/23/23 15:38 clindamycin Allergy Mild Itching Verified 01/23/23 15:38 nitrofurantoin AdvReac GI UPSET Verified 01/23/23 15:38 prednisone AdvReac CONFUSION Verified 01/23/23 15:38 Sulfa (Sulfonamide AdvReac DIARRHEA Verified 01/23/23 15:38 Antibiotics) tramadol AdvReac DIZZINESS, Verified 01/23/23 15:38 INSOMNIA zolpidem AdvReac CONFUSION Verified 01/23/23 15:38 Social History (Updated 01/26/23 @ 20:[address] Justin Muhammad MD) household members: none Smoking Status: Former smoker alcohol intake: never substance use type: does not use Vital Signs Vital Signs Vital Signs: 02/01/23 22:00 02/01/23 22:20 02/02/23 06:12 Temperature Temperature Source Pulse Rate Pulse Rhythm Regular Regular Pulse Strength Normal (2+) Respiratory Rate Respiratory Effort Normal Respiratory Depth Normal Normal Respiratory Pattern Normal Normal Blood Pressure Blood Pressure Mean Blood Pressure Source Blood Pressure Position Blood Pressure Location Pulse Ox Oxygen Delivery Method Room Air Room Air 02/02/23 09:22 02/02/23 13:07 Temperature 97.4 F L Temperature Source Temporal Pulse Rate 79 76 Pulse Rhythm Pulse Strength Respiratory Rate 16 Respiratory Effort Respiratory Depth Respiratory Pattern Blood Pressure 114/51 L 114/59 L Blood Pressure Mean 77 Blood Pressure Source Monitor Blood Pressure Position Semi-Fowlers Blood Pressure Location Left Arm Pulse Ox 98 Oxygen Delivery Method Room Air Weight Weight: 122 lb 14.4 oz Body Mass Index (BMI) 22.4 Physical Exam Narrative General -A&Ox3, NAD, appears stated age. Vital signs stable, afebrile. Respiratory -normal work of breathing, no intercostal retractions. CV -pulses regular, brisk capillary refill ?4 limbs. Abdomen-soft, nontender, nondistended. No guarding, rigidity, rebound tenderness. Musculoskeletal/neurologic -full range of motion nontender throughout left upper and left lower extremities with full sensation and strength in all dermatomes and myotomes. No midline cervical tenderness Right lower extremity-tolerates logroll without significant pain. Tenderness to palpation right greater trochanter. Skin intact circumferentially without lac erations or abrasions. Sensation intact light touch L3-S1 dermatomes. Ankle DF, PF and EHL strength 5/5. Calves are soft nontender bilaterally. DP pulse 2+ brisk capillary refill in the toes. Right upper extremity-in place. Appropriately tender over the proximal humerus. No deformity. Ecchymosis is noted. Skin intact. Radial pulse 2+ brisk cap refill in the fingertips. Pulm motion of the right hand are intact. Nontender about the elbow. Range of motion testing deferred of the right shoulder. Sensation intact light touch C5-T1 dermatomes. Lab / Micro Data 01/27/23 06:57 01/31/23 06:27 Assessment & Plan Assessment/Plan (1) Nondisplaced fracture of proximal end of right humerus: PLAN: Plan for nonsurgical management. Updated x-rays pending. Maintain sling for an additional 2 weeks. Nonweightbearing right upper extremity. Range of motion as tolerated elbow wrist and hand. Okay for gentle pendulums to the right shoulder. (2) Fracture of greater trochanter of right femur: QUALIFIERS: Encounter type: initial encounter Fracture type: closed Fracture alignment: nondisplaced Qualified Code(s): S72.114A - Nondisplaced fracture of greater trochanter of right femur, initial encounter for closed fracture PLAN: Low suspicion for nondisplaced intertrochanteric femur fracture. For management of greater trochanter avulsion fracture with weightbearing as tolera ayush right lower extremity and no active abduction of the right hip x6 weeks. Follow-up x-rays in 2 weeks of the right hip. Mobilize with PT/OT F/u in 2 weeks.
--- NOTE | 2023-02-02 13:56 | NURSING ---
IN TO SEE PT AND FAMILY. IN PT ROOM.
--- NOTE | 2023-02-02 15:47 | CASEMGMT ---
Social Work IDT met with patient and two daughters for care plan meeting. Discussed patient's progress in PT/OT/ST/SN. Educated to [facility] insurance with NRD 02/07, noted copays begin days 21-100 at $196/day, continued stay is not guaranteed with each review. Family is realistic that pt cannot return home alone at this time and is agreeable to SNF placement. However, dtr's prefer staff not say senior care to pt. Dtrs are interested in aquatic therapy. Educated to [facility] or [facility]. SW offered SNF list with quality and resource data but dtrs denied as they already have a list. Educated to financial liability for [facility] and [facility] SNFs. Dtrs expressed understanding and will notify this worker with SNF selections. Offered [facility] referral if pt cannot pay privately. Dtrs did not given initial indication about pt's funds. SW will continue to follow for DC planning. BIMS () and PHQ-9 (05/25) completed for MDS assessment. Pt contributes depressive symptoms to reason for admission and lack of mobility/ability to complete tasks. Dtrs noted pt was on Prozac but that elevated pt's sodium levels and was discontinued. SW offered to speak with on other medication options. Pt and dtrs agreeable. Written communication left for Dr. Aylin Smith ,ADVERTISING JOB TITLES COIL PLACER
--- NOTE | 2023-02-02 16:20 | RAD_ITS ---
INDICATION: Re-eval right humerus fracture EXAMINATION/TECHNIQUE: X-RAY - RIGHT XR Shoulder Min 2 Views 3 VIEWS COMPARISON: 01/23/2023 FINDINGS: Moderately impacted and displaced comminuted fracture of the humeral head and neck with the humeral head remaining in anatomic alignment. RAD/Shoulder min 2 Views IMPRESSION: Comminuted fracture of the right humeral head and neck without dislocation. Electronically Signed: Dave Mei MD at 18:44 EDT ,
[2023-02-02] MEDS: LORazepam 0.5 MG Tablet PO (21:12)
[2023-02-02] MEDS: Mirtazapine 15 MG Tablet 7.5 MG PO (21:13)
[2023-02-03] MEDS: Acetaminophen 500 MG Tablet 1000 MG PO ×3 (05:19→21:05)
[2023-02-03 05:53] LABS: Absolute Lymphocyte Count 2.24 X10^3/uL (0.83-4.51); Absolute Neutrophil Count 2.9 X10^3/uL (2.0-7.7); Basophil# 0.03 X10^3/uL; Basophil% 0.5 % (0-1); Eosinophil# 0.31 X10^3/uL; Hematocrit 38.4 % (37-47); Hemoglobin 12.4 g/dL (12.0-15.0); Lymphocyte # 2.24 X10^3/ul (0.83-4.51); Lymphocyte % 36.5 % (19-41); Mean Corp Hgb Conc 32.3 g/dL (32-36); Mean Corpuscular Hgb 34.6 pg (27.0-32.0); Mean Corpuscular Volume 107.3 fL (81-99); Monocyte# 0.62 X10^3/uL; Monocyte% 10.1 % (0-10); NRBC Flagged by Analyzer 0 % (0-5); Neutrophil # 2.91 X10^3/uL (2.7-7.7); Neutrophil % 47.4 % (47-70); Platelet Count 185 K/mm3 (150-450); RBC Distribution Width CV 15.5 % (11.6-14.6); RBC Distribution Width SD 59.9 fl (35.1-43.9); Red Blood Count 3.58 M/mm3 (4.2-5.4); White Blood Count 6.1 K/mm3 (4.4-11.0)
[2023-02-03 06:28] LABS: Anion Gap 4 (5-15); BUN 19 mg/dL (7-18); Calcium,Total 9.2 mg/dL (8.5-10.1); Chloride 109 mmol/L (98-107); Creatinine, Serum 0.91 mg/dL (0.55-1.02); EST Glomerular Filtration Rate 62 mL/min (>60); Est Glom Filt Rate - Afr Amer 75 mL/min (>60); Glucose 100 mg/dL (74-106); Potassium 4.4 mmol/L (3.5-5.1); Sodium Level 142 mmol/L (136-145)
[2023-02-03] MEDS: Allopurinol 300 MG Tablet PO (07:52)
[2023-02-03] MEDS: Ensure Plus High Protein 120 ML LIQUID PO ×2 (07:52→16:54)
[2023-02-03] MEDS: Potassium Chloride Oral Tablet 20 MEQ PO ×2 (07:52→16:53)
[2023-02-03] MEDS: Pantoprazole Sodium 40 MG Tablet PO (10:57)
[2023-02-03] MEDS: APIXABAN 2.5 MG TABLET (WCH) PO ×2 (10:57→21:05)
[2023-02-03 10:58] VITALS: PULSE 72
[2023-02-03] MEDS: Metoprolol(XL)Succ 25 MG Tablet PO (10:58)
--- NOTE | 2023-02-03 11:20 | NURSING ---
Family report that pt is unusually sleepy. Has been difficult to rouse all shift. BP at this time 121/59 p 82. Remeron 7.5 mg had been given for the first time at 2100 last night. Will continue to monitor.
--- NOTE | 2023-02-03 11:24 | CASEMGMT ---
Social Work Received call from dtr, Allison, and answered further questions. Dtr requesting list of [facility] and [facility] SNFs. SW sent via email via [employer]. Dtr requesting referrals to [facility] and [facility]. Dtr also requesting a list of elder law civil attorney's. SW emailed three choices using the internet, in [place]. SW will continue to follow. MARIAJOSE MendezW
[2023-02-03] MEDS: Tuberculin,Purif.prot.deriv. 50 TU/ML Vial 0.1 ML ID (12:46)
[2023-02-03] MEDS: Menthol/Lanolin/Calamine/Znox 113 GM Tube 1 APPLIC TOPICAL ×2 (12:53→21:09)
[2023-02-03] MEDS: oxyCODONE 5 MG Tablet PO ×2 (13:23→21:06)
[2023-02-03 15:03] VITALS: BP 93/44; PULSE 81; RESP 14; TEMP 36.7; O2SAT 94
[2023-02-03 19:30] VITALS: O2SAT 95
[2023-02-04] MEDS: Acetaminophen 500 MG Tablet 1000 MG PO ×3 (05:30→21:03)
[2023-02-04 06:54] VITALS: O2SAT 94
[2023-02-04 09:51] VITALS: BP 102/52; PULSE 73
[2023-02-04] MEDS: Metoprolol(XL)Succ 25 MG Tablet 12.5 MG PO (09:51)
[2023-02-04] MEDS: Ensure Plus High Protein 120 ML LIQUID PO ×2 (09:51→17:43)
[2023-02-04] MEDS: APIXABAN 2.5 MG TABLET (WCH) PO ×2 (09:52→21:03)
[2023-02-04] MEDS: Potassium Chloride Oral Tablet 20 MEQ PO ×2 (09:52→17:45)
[2023-02-04] MEDS: Allopurinol 300 MG Tablet PO (09:52)
[2023-02-04] MEDS: Pantoprazole Sodium 40 MG Tablet PO (09:53)
[2023-02-04 09:59] VITALS: BP 102/52; PULSE 73
[2023-02-04] MEDS: Menthol/Lanolin/Calamine/Znox 113 GM Tube 1 APPLIC TOPICAL ×2 (11:09→21:02)
[2023-02-04] MEDS: oxyCODONE 5 MG Tablet PO ×2 (11:09→17:45)
--- NOTE | 2023-02-04 11:22 | CASEMGMT ---
Social Work SW phoned dtr, Allison, left voicemail to update that [facility] and [facility] both do not have bed availability and requested additional SNF choices. Aylin Smith, PLANNER/SCHEDULER SHOULDER SAWYER
[2023-02-04 13:52] VITALS: BP 115/64; PULSE 78; RESP 19; TEMP 36.3; O2SAT 95
[2023-02-05] MEDS: Acetaminophen 500 MG Tablet 1000 MG PO ×3 (05:47→20:43)
[2023-02-05] MEDS: Ensure Plus High Protein 120 ML LIQUID PO ×3 (08:58→17:15)
[2023-02-05] MEDS: Potassium Chloride Oral Tablet 20 MEQ PO ×2 (08:59→17:15)
[2023-02-05] MEDS: Allopurinol 300 MG Tablet PO (08:59)
[2023-02-05] MEDS: APIXABAN 2.5 MG TABLET (WCH) PO ×2 (08:59→20:43)
[2023-02-05 09:00] VITALS: BP 107/44; PULSE 80
[2023-02-05] MEDS: Metoprolol(XL)Succ 25 MG Tablet 12.5 MG PO (09:00)
[2023-02-05] MEDS: Pantoprazole Sodium 40 MG Tablet PO (09:00)
[2023-02-05] MEDS: Menthol/Lanolin/Calamine/Znox 113 GM Tube 1 APPLIC TOPICAL ×2 (09:10→21:08)
[2023-02-05] MEDS: oxyCODONE 5 MG Tablet PO ×2 (13:36→20:44)
[2023-02-05 13:44] VITALS: BP 112/61; PULSE 75; RESP 18; TEMP 36.3; O2SAT 96
[2023-02-06] MEDS: Acetaminophen 500 MG Tablet 1000 MG PO ×3 (05:35→20:05)
[2023-02-06] MEDS: Ensure Plus High Protein 120 ML LIQUID PO ×3 (05:35→17:39)
[2023-02-06] MEDS: Potassium Chloride Oral Tablet 20 MEQ PO ×2 (08:56→17:40)
[2023-02-06] MEDS: Allopurinol 300 MG Tablet PO (08:56)
[2023-02-06] MEDS: Pantoprazole Sodium 40 MG Tablet PO (08:56)
[2023-02-06] MEDS: Menthol/Lanolin/Calamine/Znox 113 GM Tube 1 APPLIC TOPICAL ×2 (08:56→20:02)
[2023-02-06] MEDS: APIXABAN 2.5 MG TABLET (WCH) PO ×2 (08:56→20:05)
[2023-02-06 09:00] VITALS: BP 99/48; PULSE 68
[2023-02-06] MEDS: Metoprolol(XL)Succ 25 MG Tablet 12.5 MG PO (09:00)
[2023-02-06 09:03] VITALS: BP 99/48; PULSE 68; RESP 16; TEMP 36.3; O2SAT 94
[2023-02-06 09:06] VITALS: PULSE 68; RESP 16; O2SAT 94
[2023-02-06] MEDS: oxyCODONE 5 MG Tablet PO (09:15)
--- NOTE | 2023-02-07 01:46 | NURSING ---
Patient requested pain medication. While administering her the medication patient was tearful and stated I can not do this anymore. Therapeutic communication was used with patient in which was not effective at this time.
[2023-02-07] MEDS: Acetaminophen 500 MG Tablet 1000 MG PO ×3 (05:11→20:48)
[2023-02-07 05:16] VITALS: PULSE 76; RESP 16; O2SAT 97
--- NOTE | 2023-02-07 07:53 | MDS.RN ---
Information for the mds was obtained from review of the clinical record, interview of resident, staff, and direct observation of resident's care.
[2023-02-07] MEDS: Ensure Plus High Protein 120 ML LIQUID PO ×3 (09:49→18:02)
[2023-02-07] MEDS: Potassium Chloride Oral Tablet 20 MEQ PO ×2 (09:50→18:02)
[2023-02-07] MEDS: Allopurinol 300 MG Tablet PO (09:50)
[2023-02-07 09:51] VITALS: BP 105/55; PULSE 78
[2023-02-07] MEDS: APIXABAN 2.5 MG TABLET (WCH) PO ×2 (09:51→20:48)
[2023-02-07] MEDS: Pantoprazole Sodium 40 MG Tablet PO (09:51)
[2023-02-07] MEDS: Metoprolol(XL)Succ 25 MG Tablet 12.5 MG PO (09:51)
[2023-02-07 11:23] VITALS: BP 106/38; PULSE 73; RESP 14; TEMP 36.4; O2SAT 96
[2023-02-07] MEDS: Menthol/Lanolin/Calamine/Znox 113 GM Tube 1 APPLIC TOPICAL ×2 (14:50→20:48)
--- NOTE | 2023-02-07 16:08 | CASEMGMT ---
Addendum entered by Aylin Smith 02/07/23 16:41: SW updated dtr's via email of the following accepting facilities and prices: [facility], [facility], and [facility]. [facility] does not have any beds. Will await responses from [facility] and [facility]. Original Note: Social Work Dtr emailed back and requested lists for [facility] and [facility]. SW sent list of [facility] via [employer] and educated to Medicare.gov for other specific radius and search options. Dtr returned email with requests for referrals to [facility], [facility], [facility], [facility]. Referrals made via [employer]. Will continue to follow. MARIAJOSE Mendez
[2023-02-08] MEDS: Acetaminophen 500 MG Tablet 1000 MG PO ×3 (05:17→22:55)
[2023-02-08] MEDS: Allopurinol 300 MG Tablet PO (09:36)
[2023-02-08] MEDS: Menthol/Lanolin/Calamine/Znox 113 GM Tube 1 APPLIC TOPICAL ×2 (09:36→22:54)
[2023-02-08] MEDS: Potassium Chloride Oral Tablet 20 MEQ PO ×2 (09:36→17:56)
[2023-02-08 09:37] VITALS: BP 111/58; PULSE 75
[2023-02-08] MEDS: Pantoprazole Sodium 40 MG Tablet PO (09:37)
[2023-02-08] MEDS: APIXABAN 2.5 MG TABLET (WCH) PO ×2 (09:37→22:55)
[2023-02-08] MEDS: Metoprolol(XL)Succ 25 MG Tablet 12.5 MG PO (09:37)
[2023-02-08] MEDS: oxyCODONE 5 MG Tablet PO (09:42)
[2023-02-08 09:47] VITALS: BP 111/58; PULSE 75
[2023-02-08 14:15] VITALS: BMI 22.4
[2023-02-08 14:44] VITALS: BP 104/66; PULSE 71; RESP 14; TEMP 36.7; O2SAT 97
--- NOTE | 2023-02-08 19:09 | NURSING ---
PT AND FAMILY NOTIFIED OF A PT THAT TESTED POSITIVE FOR COVID.
[2023-02-09] MEDS: Acetaminophen 500 MG Tablet 1000 MG PO ×3 (05:22→20:08)
[2023-02-09] MEDS: Potassium Chloride Oral Tablet 20 MEQ PO ×2 (09:16→17:31)
[2023-02-09] MEDS: Allopurinol 300 MG Tablet PO (09:16)
[2023-02-09] MEDS: Menthol/Lanolin/Calamine/Znox 113 GM Tube 1 APPLIC TOPICAL ×2 (09:18→20:09)
[2023-02-09] MEDS: Pantoprazole Sodium 40 MG Tablet PO (09:18)
[2023-02-09] MEDS: APIXABAN 2.5 MG TABLET (WCH) PO ×2 (09:19→20:08)
[2023-02-09 09:24] VITALS: BP 102/70; PULSE 75
[2023-02-09] MEDS: Metoprolol(XL)Succ 25 MG Tablet 12.5 MG PO (09:24)
[2023-02-09 09:27] VITALS: BP 102/70; PULSE 75
[2023-02-09] MEDS: oxyCODONE 5 MG Tablet PO ×2 (11:05→19:58)
--- NOTE | 2023-02-09 11:33 | CASEMGMT ---
Addendum entered by Aylin Smith 02/10/23 11:36: Dtr's are choosing [facility] for FOC. SW updated [facility] and the other SNFs. Will await outcome from NRD 02/11. Original Note: Social Work SW spoke with [facility] and they do not have beds available. [facility] can accept pt. SW emailed dtr's with updates and requested FOC. Will continue to follow. Aylin Smith, MARIAJOSE FURNACE WORKER
[2023-02-09 14:41] VITALS: BP 101/54; PULSE 72; RESP 16; TEMP 36.6; O2SAT 96
[2023-02-09] MEDS: NYSTATIN 500,000 UNIT/5 ML UDC 500000 UNIT PO (19:59)
[2023-02-10] MEDS: Acetaminophen 500 MG Tablet 1000 MG PO ×3 (05:34→20:58)
[2023-02-10] MEDS: NYSTATIN 500,000 UNIT/5 ML UDC 500000 UNIT PO ×4 (05:34→20:59)
[2023-02-10 05:58] LABS: Absolute Lymphocyte Count 1.89 X10^3/uL (0.83-4.51); Absolute Neutrophil Count 2.2 X10^3/uL (2.0-7.7); Basophil# 0.04 X10^3/uL; Basophil% 0.8 % (0-1); Hematocrit 35.8 % (37-47); Hemoglobin 11.7 g/dL (12.0-15.0); Lymphocyte # 1.89 X10^3/ul (0.83-4.51); Mean Corp Hgb Conc 32.7 g/dL (32-36); Mean Corpuscular Hgb 35.5 pg (27.0-32.0); Mean Corpuscular Volume 108.5 fL (81-99); Mean Platelet Vol. 11.4 fl (6.2-12.0); Monocyte# 0.42 X10^3/uL; Monocyte% 8.5 % (0-10); NRBC Flagged by Analyzer 0 % (0-5); Neutrophil # 2.21 X10^3/uL (2.7-7.7); Neutrophil % 44.5 % (47-70); Platelet Count 171 K/mm3 (150-450); RBC Distribution Width SD 60.7 fl (35.1-43.9)
[2023-02-10 06:22] LABS: Anion Gap 4 (5-15); BUN 26 mg/dL (7-18); BUN/Creat Ratio 30.7 RATIO (10-20); Calcium,Total 8.8 mg/dL (8.5-10.1); Chloride 113 mmol/L (98-107); Creatinine, Serum 0.85 mg/dL (0.55-1.02); EST Glomerular Filtration Rate 67 mL/min (>60); Est Glom Filt Rate - Afr Amer 82 mL/min (>60); Estimated Creatinine Clearance 36.18 ml/min; Glucose 94 mg/dL (74-106); Potassium 4.4 mmol/L (3.5-5.1); Sodium Level 142 mmol/L (136-145)
[2023-02-10] MEDS: Potassium Chloride Oral Tablet 20 MEQ PO ×2 (08:09→18:01)
[2023-02-10] MEDS: Allopurinol 300 MG Tablet PO (08:09)
[2023-02-10 09:55] VITALS: PULSE 68
[2023-02-10] MEDS: Metoprolol(XL)Succ 25 MG Tablet 12.5 MG PO (09:55)
[2023-02-10] MEDS: Pantoprazole Sodium 40 MG Tablet PO (09:56)
[2023-02-10] MEDS: APIXABAN 2.5 MG TABLET (WCH) PO ×2 (09:56→20:59)
[2023-02-10] MEDS: oxyCODONE 5 MG Tablet PO ×3 (10:48→20:56)
[2023-02-10 16:00] VITALS: BP 121/60; PULSE 74; RESP 16; TEMP 36.7; O2SAT 97
--- NOTE | 2023-02-10 16:27 | NURSING ---
Updated patient in room and daughter (Gemma) by phone that staff members have tested positive for covid.
[2023-02-10] MEDS: Menthol/Lanolin/Calamine/Znox 113 GM Tube 1 APPLIC TOPICAL (21:02)
[2023-02-11] MEDS: Acetaminophen 500 MG Tablet 1000 MG PO ×3 (05:05→20:39)
[2023-02-11] MEDS: NYSTATIN 500,000 UNIT/5 ML UDC 500000 UNIT PO ×4 (05:06→20:39)
[2023-02-11] MEDS: Pantoprazole Sodium 40 MG Tablet PO (10:19)
[2023-02-11] MEDS: Potassium Chloride Oral Tablet 20 MEQ PO ×2 (10:19→17:21)
[2023-02-11] MEDS: Allopurinol 300 MG Tablet PO (10:19)
[2023-02-11] MEDS: Menthol/Lanolin/Calamine/Znox 113 GM Tube 1 APPLIC TOPICAL ×2 (10:20→20:40)
[2023-02-11 10:23] VITALS: PULSE 66
[2023-02-11] MEDS: Metoprolol(XL)Succ 25 MG Tablet 12.5 MG PO (10:23)
[2023-02-11] MEDS: APIXABAN 2.5 MG TABLET (WCH) PO ×2 (11:17→20:39)
[2023-02-11 14:41] VITALS: BP 118/56; PULSE 79; RESP 18; TEMP 36.7; O2SAT 96
--- NOTE | 2023-02-11 15:27 | NURSING ---
Updated family that patients and staff members have tested covid positive.
--- NOTE | 2023-02-11 16:48 | DS.PCM_ITS ---
Providers Date of Admission: 01/26/23 Primary Care Physician: Dr. Odin Bolton DO Reason For Visit: HUMAS FRACTURE & FALLS Diagnosis Discharge Diagnosis (1) Nondisplaced fracture of proximal end of right humerus: Status: Inactive Code(s): S42.201A - Unspecified fracture of upper end of right humerus, initial encounter for closed fracture (2) Fracture of greater trochanter of right femur: Status: Acute Code(s): S72.111A - Displaced fracture of greater trochanter of right femur, initial encounter for closed fracture Qualifiers: Encounter type: initial encounter Fracture type: closed Fracture alignment: nondisplaced Qualified Code(s): S72.114A - Nondisplaced fracture of greater trochanter of right femur, initial encounter for closed fracture Plan 87 year old female with below past medical history hospitalized for right proximal humerus fracture, right hip contusion, complicated by encephalopathy, hyponatremia, thrombocytopenia, admitted to TCU with debility, here for rehabilitation, strengthening, prior to discharge home alone. * Debility - PT/OT. * Cognition - ST. * Pain - Tylenol 1000mg q8, Oxycodone 5mg q4h prn pain (6-10). * Bowel - senna/colace 1 tablet bid prn. * Adult immunization - Administer pneumonia vaccine, covid19 vaccine, flu vaccine as appropriate. * DVT prophylaxis - on Eliquis. * Gout - Allopurinol 300mg daily. * Atrial fibrillation - Metoprolol succinate 25mg daily, Eliquis 2.5mg bid. * Nutrition - Ensure Plus 120ml po tidcm. * Encephalopathy - cbcd, bmp, UA. UA negative for infection, send for C+S. CT head tomorrow. * Anxiety/Restlessness/sleep - Lorazepam 0.5mg q4h prn, initiate GDR once stable. * Skin irritation - Calmoseptine topical bid. * GERD - Pantoprazole 40mg daily. * Hyponatremia secondary SIADH - Fluid restriction, trend BMP. * Thrombocytopenia - Platelets improved to 104,000. Medications at Discharge Home Medications allopurinol 300 mg tablet 300 mg PO DAILY Gout 01/23/23 apixaban 2.5 mg tablet (Eliquis) 2.5 mg PO BID Anticoagulant 01/23/23 cream base no.175 (bulk) (Versatile Rich topical cream) 4 applic topical .weekly Check with Primary Doctor 01/23/23 fluoxetine 20 mg capsule 20 mg PO DAILY Mood 01/23/23 furosemide 20 mg tablet 20 mg PO DAILY Edema 01/23/23 hydrocodone-acetaminophen 5-325mg 5mg-325mg 1 tab PO Q6H PRN PRN Pain 5 days #20 TABLETS 01/23/23 metoprolol succinate 25 mg tablet,extended release 24 hr 25 mg PO DAILY BP 01/23/23 pantoprazole 40 mg tablet,delayed release 40 mg PO DAILY GERD 01/23/23 loperamide 2 mg capsule 2 mg PO Q6H PRN loose stool #30 caps 01/26/23 Hospital Course Operations None Procedures None Summary of Care Provided Minutes Spent on Discharge: 35 Hospital Course: 87 year old female with below past medical history hospitalized for right proximal humerus fracture, right hip contusion, complicated by encephalopathy, hyponatremia, thrombocytopenia, admitted to TCU with debility, here for rehabilitation, strengthening, prior to discharge home alone. Confused on admission secondary to hyponatremia, improved with fluid restriction, and stopping fluoxetine. 02/01/2023 CT pelvis Nondisplaced avulsion type fracture of the greater trochanter of the proximal right femur. Dr. Stein consulted recommended conservative management. Discharge to [facility] 02/14/2023, pending appeal, intermediate, part B therapies. Physical Exam Const alert General Appearance: cooperative HEENT normocephalic Eyes PERRL and EOMs intact bilaterally Neck supple, no JVD and no carotid bruits Resp normal respiratory effort, normal air movement and clear to auscultation bilaterally Cardio regular rate and regular rhythm GI normal to inspection, nondistended, normoactive bowel sounds, non-tender and non-distended Extremity normal capillary refill Extremity Narrative: Right upper extremity sling. General Extremity: Negative for edema Skin no rashes or lesions noted General Skin Exam: no breakdown Psych affect normal Appearance: appropriate Weight / BMI Weight Weight: 55.202 kg Body Mass Index (BMI) 22.4 ABG / Lab / Microbiology Data 02/10/23 05:25 02/10/23 05:25 Microbiology: Microbiology 02/11/23 05:00 Nasal Secretion SARS-CoV-2 Antigen (Rapid) - Final 02/08/23 22:20 Nasal Secretion SARS-CoV-2 Antigen (Rapid) - Final 01/26/23 19:40 Urine, Catheterized Urine Culture - Final Culture exhibits no growth. D/C Instructions Discharge Diet: No restrictions Discharge Activity: Return to Normal Activity, May Shower and Use Walker Weight Bearing Status: Weight bearing as tolerated (Right lower extremity.) and No weight bearing (Right upper extremity.) Call your doctor if you observe: Fever of 101 or Higher, Inability to urinate, Inability to have a bowel movement, Shortness of breath, Dizziness, Fainting spells, Swelling in the ankles, Chest pain and Uncontrolled pain Additional Instructions: Discharge to [facility] 02/14/2023, pending appeal, intermediate, part B therapies. Please Follow Up With: Jerrell Marsh PA-C When: As scheduled. Meaningful Use Info Meaningful Use Diagnoses (Choose all that apply): None applicable Discharge Plan Admission Admit Date/Time: 01/26/23 15:11 Primary Reason for Your Visit: Debility. Attending Provider: Justin Muhammad Chi Primary Care Provider: Odin Bolton Instructions Additional Instructions / Restrictions: Discharge to [facility] 02/14/2023, pending appeal, intermediate, part B therapies. Discharge Orders/Prescriptions Prescriptions: No Action hydrocodone-acetaminophen [hydrocodone-acetaminophen] 5-325 mg tablet 1 tab PO Q6H PRN PRN (Reason: Pain) 5 Days Qty: 20 0RF Eliquis 2.5 mg tablet 2.5 mg PO BID Patient Comments: TAKE 1 TABLET BY MOUTH TWICE DAILY furosemide 20 mg tablet 20 mg PO DAILY Patient Comments: TAKE 1 TABLET BY MOUTH THREE TIMES A WEEK (TUESDAY, TUESDAY, AND TUESDAY) metoprolol succinate 25 mg tablet extended release 24 hr 25 mg PO DAILY Patient Comments: TAKE 1 TABLET BY MOUTH ONCE DAILY allopurinol 300 mg tablet
--- NOTE | 2023-02-11 16:48 | PCM.DC.SUM ---
Providers Date of Admission: 01/26/23 Primary Care Physician: Dr. Odin Bolton DO Reason For Visit: HUMAS FRACTURE & FALLS Diagnosis Discharge Diagnosis (1) Nondisplaced fracture of proximal end of right humerus: Status: Inactive Code(s): S42.201A - Unspecified fracture of upper end of right humerus, initial encounter for closed fracture (2) Fracture of greater trochanter of right femur: Status: Acute Code(s): S72.111A - Displaced fracture of greater trochanter of right femur, initial encounter for closed fracture Qualifiers: Encounter type: initial encounter Fracture type: closed Fracture alignment: nondisplaced Qualified Code(s): S72.114A - Nondisplaced fracture of greater trochanter of right femur, initial encounter for closed fracture Plan 87 year old female with below past medical history hospitalized for right proximal humerus fracture, right hip contusion, complicated by encephalopathy, hyponatremia, thrombocytopenia, admitted to TCU with debility, here for rehabilitation, strengthening, prior to discharge home alone. Debility - PT/OT. Cognition - ST. Pain - Tylenol 1000mg q8, Oxycodone 5mg q4h prn pain (6-10). Bowel - senna/colace 1 tablet bid prn. Adult immunization - Administer pneumonia vaccine, covid19 vaccine, flu vaccine as appropriate. DVT prophylaxis - on Eliquis. Gout - Allopurinol 300mg daily. Atrial fibrillation - Metoprolol succinate 25mg daily, Eliquis 2.5mg bid. Nutrition - Ensure Plus 120ml po tidcm. Encephalopathy - cbcd, bmp, UA. UA negative for infection, send for C+S. CT head tomorrow. Anxiety/Restlessness/sleep - Lorazepam 0.5mg q4h prn, initiate GDR once stable. Skin irritation - Calmoseptine topical bid. GERD - Pantoprazole 40mg daily. Hyponatremia secondary SIADH - Fluid restriction, trend BMP. Thrombocytopenia - Platelets improved to 104,000. Medications at Discharge Home Medications allopurinol 300 mg tablet 300 mg PO DAILY Gout 01/23/23 apixaban 2.5 mg tablet (Eliquis) 2.5 mg PO BID Anticoagulant 01/23/23 pantoprazole 40 mg tablet,delayed release 40 mg PO DAILY GERD 01/23/23 acetaminophen 500 mg tablet 1,000 mg (2 x 500 mg) PO Q8 #0 tabs 02/11/23 food supplemt, lactose-reduced 0.08 gram-1.5 kcal/mL oral liquid (Ensure Plus High Protein) 120 ml PO DAILY #0 mL 02/11/23 menthol 0.44 %-zinc oxide 20.6 % topical ointment (Calmoseptine) 1 applic topical BID #0 grams 02/11/23 metoprolol succinate 25 mg tablet,extended release 24 hr 12.5 mg (1/2 x 25 mg) PO DAILY #0 tabs 02/11/23 oxycodone 5 mg tablet 5 mg PO Q4H PRN PRN Pain Score 6-10 3 days #18 tabs 02/11/23 potassium chloride 20 mEq tablet,extended release(part/cryst) (Klor-Con M) 20 meq PO BIDCM #0 tabs 02/11/23 Hospital Course Operations None Procedures None Summary of Care Provided Minutes Spent on Discharge: 35 Hospital Course: 87 year old female with below past medical history hospitalized for right proximal humerus fracture, right hip contusion, complicated by encephalopathy, hyponatremia, thrombocytopenia, admitted to TCU with debility, here for rehabilitation, strengthening, prior to discharge home alone. Confused on admission secondary to hyponatremia, improved with fluid restriction, and stopping fluoxetine. 02/01/2023 CT pelvis Nondisplaced avulsion type fracture of the greater trochanter of the proximal right femur. Dr. Stein consulted recommended conservative management. Discharge to [facility] 02/14/2023, pending appeal, intermediate, part B therapies. Physical Exam Const alert General Appearance: cooperative HEENT normocephalic Eyes PERRL and EOMs intact bilaterally Neck supple, no JVD and no carotid bruits Resp normal respiratory effort, normal air movement and clear to auscultation bilaterally Cardio regular rate and regular rhythm GI normal to inspection, nondistended, normoactive bowel sounds, non-tender and non-distended Extremity normal capillary refill Extremity Narrative: Right upper extremity sling. General Extremity: Negative for edema Skin no rashes or lesions noted General Skin Exam: no breakdown Psych affect normal Appearance: appropriate Weight / BMI Weight Weight: 55.202 kg Body Mass Index (BMI) 22.4 ABG / Lab / Microbiology Data 02/10/23 05:25 02/10/23 05:25 Microbiology: Microbiology 02/11/23 05:00 Nasal Secretion SARS-CoV-2 Antigen (Rapid) - Final 02/08/23 22:20 Nasal Secretion SARS-CoV-2 Antigen (Rapid) - Final 01/26/23 19:40 Urine, Catheterized Urine Culture - Final Culture exhibits no growth. D/C Instructions Discharge Diet: No restrictions Discharge Activity: Return to Normal Activity, May Shower and Use Walker Weight Bearing Status: Weight bearing as tolerated (Right lower extremity.) and No weight bearing (Right upper extremity.) Call your doctor if you observe: Fever of 101 or Higher, Inability to urinate, Inability to have a bowel movement, Shortness of breath, Dizziness, Fainting spells, Swelling in the ankles, Chest pain and Uncontrolled pain Additional Instructions: Discharge to [facility] 02/14/2023, pending appeal, intermediate, part B therapies. Please Follow Up With: Jerrell Marsh PA-C When: As scheduled. Meaningful Use Info Meaningful Use Diagnoses (Choose all that apply): None applicable Discharge Plan Admission Admit Date/Time: 01/26/23 15:11 Primary Reason for Your Visit: Debility. Attending Provider: Justin Muhammad Chi Primary Care Provider: Odin Bolton Instructions Additional Instructions / Restrictions: Discharge to [facility] 02/14/2023, pending appeal, intermediate, part B therapies. Discharge Orders/Prescriptions Prescriptions: New acetaminophen 500 mg Tablet 1,000 mg PO Q8 Qty: 0 0RF potassium chloride [Klor-Con M20] 20 mEq Tablet,Er Particles/Crystals 20 meq PO BIDCM Qty: 0 0RF metoprolol succinate 25 mg Tablet Extended Release 24 Hr 12.5 mg PO DAILY Qty: 0 0RF oxycodone 5 mg Tablet 5 mg PO Q4H PRN PRN (Reason: Pain Score 6-10) 3 Days Qty: 18 0RF menthol-zinc oxide [Calmoseptine] 0.44-20.6 % Ointment 1 applic topical BID Qty: 0 0RF Protocol: *Topical Application Instructions APPLICATION INSTRUCTIONS: COCCYX AND CORAZON BUTTUCKS Ensure Plus High Protein 0.08 gram-1.5 kcal/mL Liquid 120 ml PO DAILY Qty: 0 0RF Continued Eliquis 2.5 mg tablet 2.5 mg PO BID Patient Comments: TAKE 1 TABLET BY MOUTH TWICE DAILY allopurinol 300 mg tablet 300 mg PO DAILY Patient Comments: TAKE 1 TABLET BY MOUTH ONCE DAILY pantoprazole 40 mg tablet,delayed release (DR/EC) 40 mg PO DAILY Patient Comments: TAKE 1 TABLET BY MOUTH IN THE MORNING BEFORE BREAKFAST Discontinued hydrocodone-acetaminophen [hydrocodone-acetaminophen] 5-325 mg tablet 1 tab PO Q6H PRN PRN (Reason: Pain) 5 Days Qty: 20 0RF furosemide 20 mg tablet 20 mg PO DAILY Patient Comments: TAKE 1 TABLET BY MOUTH THREE TIMES A WEEK (TUESDAY, TUESDAY, AND TUESDAY) metoprolol succinate 25 mg tablet extended release 24 hr 25 mg PO DAILY Patient Comments: TAKE 1 TABLET BY MOUTH ONCE DAILY Versatile Rich Cream 4 applic TOPICAL .weekly Hold Instructions: On hold while on TCU Patient Comments: APPLY 1 GRAM (4 CLICKS)IVAGINALLY TWICE WEEKLYL fluoxetine 20 mg capsule 20 mg PO DAILY Patient Comments: TAKE 1 CAPSULE BY MOUTH ONCE DAILY IN THE MORNING loperamide 2 mg capsule 2 mg PO Q6H PRN (Reason: loose stool) Qty: 30 0RF Referrals / Follow Up: Odin Bolton DO [Primary Care Provider] - Disposition Disposition (needs filled in before D/C Order can be placed): NonSkilled NH/Intermed Care
--- NOTE | 2023-02-11 16:58 | TREXTCAR_ITS ---
Diet Diet Order/Speech Therapy: 02/02/23 14:11 Diet: Regular - General Is pt able to select menu?: Yes Diet Comments: magic cup or ensure pudding w/ lunch and dinner Routine Orders/Code Status Code Status: Full Code Wound(s) RT ELBOW: Wound Type: Skin Tear Dressing Change: Scabbed POST LT BACK: Wound Type: Abrasion Therapies Weight Bearing: Weight bearing as tolerated (Right lower extremity.) and Non weight bearing (Right upper extremity.) Physical Therapy: Eval and Treat Occupational Therapy: Eval and Treat Problem/Diagnosis (1) Nondisplaced fracture of proximal end of right humerus: Status: Inactive Code(s): S42.201A - Unspecified fracture of upper end of right humerus, initial encounter for closed fracture (2) Fracture of greater trochanter of right femur: Status: Acute Code(s): S72.111A - Displaced fracture of greater trochanter of right femur, initial encounter for closed fracture Plan 87 year old female with below past medical history hospitalized for right proximal humerus fracture, right hip contusion, complicated by encephalopathy, hyponatremia, thrombocytopenia, admitted to TCU with debility, here for rehabilitation, strengthening, prior to discharge home alone. * Debility - PT/OT. * Cognition - ST. * Pain - Tylenol 1000mg q8, Oxycodone 5mg q4h prn pain (6-10). * Bowel - senna/colace 1 tablet bid prn. * Adult immunization - Administer pneumonia vaccine, covid19 vaccine, flu vaccine as appropriate. * DVT prophylaxis - on Eliquis. * Gout - Allopurinol 300mg daily. * Atrial fibrillation - Metoprolol succinate 25mg daily, Eliquis 2.5mg bid. * Nutrition - Ensure Plus 120ml po tidcm. * Encephalopathy - cbcd, bmp, UA. UA negative for infection, send for C+S. CT head tomorrow. * Anxiety/Restlessness/sleep - Lorazepam 0.5mg q4h prn, initiate GDR once stable. * Skin irritation - Calmoseptine topical bid. * GERD - Pantoprazole 40mg daily. * Hyponatremia secondary SIADH - Fluid restriction, trend BMP. * Thrombocytopenia - Platelets improved to 104,000. Allergies/Procedures Done in Hospital Allergies Penicillins Allergy (Intermediate, Verified 01/23/23 15:38) HIVES cefuroxime Allergy (Mild, Verified 01/23/23 15:38) Itching clindamycin Allergy (Mild, Verified 01/23/23 15:38) Itching nitrofurantoin Adverse Reaction (Verified 01/23/23 15:38) GI UPSET prednisone Adverse Reaction (Verified 01/23/23 15:38) CONFUSION Sulfa (Sulfonamide Antibiotics) Adverse Reaction (Verified 01/23/23 15:38) DIARRHEA tramadol Adverse Reaction (Verified 01/23/23 15:38) DIZZINESS, INSOMNIA zolpidem Adverse Reaction (Verified 01/23/23 15:38) CONFUSION Procedures: None Type of Care/Length of Stay Estimated LOS: Convalescent Care Less Than 30 days Type of Care Needed: Intermediate Rehab Potential: Fair Prognosis: Fair Additional Orders/Day of Discharge Day of Discharge: 02/14/23 Dietary and Speech Recommendations Dietitian Recommendations/Changes: Will continue liberalized diet of Regular Continue ensure pudding or magic cup w/ lunch and dinner for increased nutrition if consumed. Decrease EPHP with medpass to 1x/day d/t increasing refusals and improving appetite. Follow Up Care Please Follow Up With: Jerrell Marsh, PAMichelleC When: 5-7 days Discharge Plan Admission Admit Date/Time: 01/26/23 15:11 Primary Reason for Your Visit: Debility. Attending Provider: Justin Muhammad Chi Primary Care Provider: Odin Bolton Instructions Additional Instructions / Restrictions: Discharge to [facility] 02/14/2023, pending appeal, intermediate, part B therapies. Discharge Orders/Prescriptions Prescriptions: New acetaminophen 500 mg Tablet 1,000 mg PO Q8 Qty: 0 0RF potassium chloride [Klor-Con M20] 20 mEq Tablet,Er Particles/Crystals 20 meq PO BIDCM Qty: 0 0RF metoprolol succinate 25 mg Tablet Extended Release 24 Hr 12.5 mg PO DAILY Qty: 0 0RF oxycodone 5 mg Tablet 5 mg PO Q4H PRN PRN (Reason: Pain Score 6-10) 3 Days Qty: 18 0RF menthol-zinc oxide [Calmoseptine] 0.44-20.6 % Ointment 1 applic topical BID Qty: 0 0RF Protocol: *Topical Application Instructions APPLICATION INSTRUCTIONS: COCCYX AND CORAZON BUTTUCKS Ensure Plus High Protein 0.08 gram-1.5 kcal/mL Liquid 120 ml PO DAILY Qty: 0 0RF Continued Eliquis 2.5 mg tablet 2.5 mg PO BID Patient Comments: TAKE 1 TABLET BY MOUTH TWICE DAILY allopurinol 300 mg tablet 300 mg PO DAILY Patient Comments: TAKE 1 TABLET BY MOUTH ONCE DAILY pantoprazole 40 mg tablet,delayed release (DR/EC) 40 mg PO DAILY Patient Comments: TAKE 1 TABLET BY MOUTH IN THE MORNING BEFORE BREAKFAST Discontinued hydrocodone-acetaminophen [hydrocodone-acetaminophen] 5-325 mg tablet 1 tab PO Q6H PRN PRN (Reason: Pain) 5 Days Qty: 20 0RF furosemide 20 mg tablet 20 mg PO DAILY Patient Comments: TAKE 1 TABLET BY MOUTH THREE TIMES A WEEK (TUESDAY, TUESDAY, AND TUESDAY) metoprolol succinate 25 mg tablet extended release 24 hr 25 mg PO DAILY Patient Comments: TAKE 1 TABLET BY MOUTH ONCE DAILY Versatile Rich Cream 4 applic TOPICAL .weekly Hold Instructions: On hold while on TCU Patient Comments: APPLY 1 GRAM (4 CLICKS)IVAGINALLY TWICE WEEKLYL fluoxetine 20 mg capsule 20 mg PO DAILY Patient Comments: TAKE 1 CAPSULE BY MOUTH ONCE DAILY IN THE MORNING loperamide 2 mg capsule 2 mg PO Q6H PRN (Reason: loose stool) Qty: 30 0RF Referrals / Follow Up: Odin Bolton DO [Primary Care Provider] - Disposition Disposition (needs filled in before D/C Order can be placed): NonSkilled NH/Intermed Care (2) Fracture of greater trochanter of right femur Qualifiers: Encounter type: initial encounter Fracture type: closed Fracture alignment: nondisplaced Qualified Code(s): S72.114A - Nondisplaced fracture of greater trochanter of right femur, initial encounter for closed fracture
--- NOTE | 2023-02-11 19:56 | CASEMGMT ---
Social Work Handoff received from [facility] of plan for [facility] at discharge. PASRR screen has been completed. Transportation will need to be set up when discharge date is known. NOMNC received from insurance today with last covered date of 02.13.23; discharge would be on 02.14.23. Met with patient in room, introduced to self and social work role. Patient appearing hard of hearing, as this check writer salesperson wearing a mask. Patient reported hope to go home. Educated patient plan is for [facility] at discharge, so as to allow patient more time to get stronger. Patient did not disagree. Attempted to explain the NOMNC but due to being hard of hearing, and uncertain whether patient was grasping this fully asked if could call one of the daughters. Patient agreed. Called daughter Gemma Giron and verbally updated to insurance decision, as well as reviewing plan for [facility]. Reviewed NOMNC with Gemma, daughter/MAGDI,via phone [phone] , that skilled services will be ending on 02.13.23 and financial liability or discharge will be on ; Explained appeal rights: regarding option to file an expedited appeal through JUSTIN Ortiz at before on 02.12.23.? Gemma reported desire to appeal due to belief that patient is still progressing in therapy, would like to see just a little more time with skilled care with the hopes patient could go home rather than to [facility]. Gemma reported plan to call Diana right away. This check writer salesperson went back to patient's room with Gemma on the phone. Verbally reviewed the form and Gemma's intent to appeal. Patient reported agreement and also reported to feel that therapy is still helping. Patient signed the form, as well as notation about verbal notification to daughter noted on form. Copy made for chart, and placed on chart. Copy to patient's room, and copy emailed to confirmed email Gemma provided so that Gemma could work on expedited appeal. Faxed NOMNC to Ute Kim RN, at insurance, at [phone]. Received Medical records request from [facility]. Notified Roseline Llanos, operational risk manager who will send requested records to [facility] for review. Dr. Muhammad, [facility] Director, applications coordinator and healthcare social worker all notified of this update. Updated [facility] via [facility] of anticipated discharge date of 02.14.23. Plan: Pending appeal with Diana for continued Skilled stay versus discharge to [facility] on 02.14.23. Social work to follow. -JUAN ANTONIO Muniz ?
[2023-02-12] MEDS: Acetaminophen 500 MG Tablet 1000 MG PO ×3 (05:17→21:47)
[2023-02-12] MEDS: NYSTATIN 500,000 UNIT/5 ML UDC 500000 UNIT PO ×4 (05:17→21:46)
[2023-02-12] MEDS: Pantoprazole Sodium 40 MG Tablet PO (10:00)
[2023-02-12] MEDS: Allopurinol 300 MG Tablet PO (10:00)
[2023-02-12] MEDS: APIXABAN 2.5 MG TABLET (WCH) PO ×2 (10:00→21:47)
[2023-02-12] MEDS: Potassium Chloride Oral Tablet 20 MEQ PO ×2 (10:00→17:02)
[2023-02-12] MEDS: Ensure Plus High Protein 120 ML LIQUID PO (10:01)
[2023-02-12] MEDS: Menthol/Lanolin/Calamine/Znox 113 GM Tube 1 APPLIC TOPICAL ×2 (10:01→21:49)
[2023-02-12 10:02] VITALS: PULSE 74
[2023-02-12] MEDS: Metoprolol(XL)Succ 25 MG Tablet 12.5 MG PO (10:02)
[2023-02-12 13:01] VITALS: BP 115/53; PULSE 74; RESP 16; TEMP 36.5; O2SAT 96
--- NOTE | 2023-02-12 21:04 | CASEMGMT ---
Social Work SW received information online from [employer] that appeal decision has been made and outcome notifications are pending. SW did not receive a fax, multiple locations checked. SW introduced self and role to patient and family and asked if they had been notified of appeal results. Pt and son/DIL present and did not receive notification. Pt reports if she does not get to stay at TCU she would like to go home. SW number given to other daughter that was handling appeal. Daughter, Gemma, called to report no information has been received on appeal status but she will call if received. Plan: Follow up with appeal status, d/c pending for Tuesday. Claribel Lester GAS BURNER OPERATOR, MARINE HABITAT RESOURCE SPECIALIST
[2023-02-12] MEDS: oxyCODONE 5 MG Tablet PO (21:46)
[2023-02-13] MEDS: Acetaminophen 500 MG Tablet 1000 MG PO ×3 (05:20→20:26)
[2023-02-13] MEDS: NYSTATIN 500,000 UNIT/5 ML UDC 500000 UNIT PO ×4 (05:20→20:26)
[2023-02-13] MEDS: Allopurinol 300 MG Tablet PO (10:22)
[2023-02-13] MEDS: Potassium Chloride Oral Tablet 20 MEQ PO ×2 (10:22→18:13)
[2023-02-13] MEDS: Pantoprazole Sodium 40 MG Tablet PO (10:22)
[2023-02-13] MEDS: Menthol/Lanolin/Calamine/Znox 113 GM Tube 1 APPLIC TOPICAL ×2 (10:23→22:19)
[2023-02-13 10:24] VITALS: BP 111/59; PULSE 71
[2023-02-13] MEDS: APIXABAN 2.5 MG TABLET (WCH) PO ×2 (10:24→20:26)
[2023-02-13] MEDS: Metoprolol(XL)Succ 25 MG Tablet 12.5 MG PO (10:24)
[2023-02-13] MEDS: Ensure Plus High Protein 120 ML LIQUID PO (10:24)
[2023-02-13 16:00] VITALS: BP 115/54; PULSE 78; RESP 16; TEMP 36.9; O2SAT 96
[2023-02-13] MEDS: oxyCODONE 5 MG Tablet PO ×2 (16:23→20:28)
[2023-02-14] MEDS: NYSTATIN 500,000 UNIT/5 ML UDC 500000 UNIT PO ×2 (05:14→13:21)
[2023-02-14] MEDS: Acetaminophen 500 MG Tablet 1000 MG PO ×2 (05:15→13:22)
[2023-02-14] MEDS: Ensure Plus High Protein 120 ML LIQUID PO (08:42)
[2023-02-14] MEDS: oxyCODONE 5 MG Tablet PO ×2 (08:42→13:22)
[2023-02-14 08:43] VITALS: PULSE 88
[2023-02-14] MEDS: Allopurinol 300 MG Tablet PO (08:43)
[2023-02-14] MEDS: APIXABAN 2.5 MG TABLET (WCH) PO (08:43)
[2023-02-14] MEDS: Pantoprazole Sodium 40 MG Tablet PO (08:43)
[2023-02-14] MEDS: Potassium Chloride Oral Tablet 20 MEQ PO (08:43)
[2023-02-14] MEDS: Metoprolol(XL)Succ 25 MG Tablet 12.5 MG PO (08:43)
[2023-02-14] MEDS: Menthol/Lanolin/Calamine/Znox 113 GM Tube 1 APPLIC TOPICAL (08:47)
--- NOTE | 2023-02-14 09:43 | CASEMGMT ---
Social Work SW received notification from [facility] that denial of services was upheld, appeal was lost. SW spoke with pt dgt Allison who is aware of this and agreeable for pt to go to [facility] today. Discharge orders and PASRR sent to [facility] via [employer]. Transportation arranged with [facility] for 1:30 sweet pickled fruit maker via [employer]. Nursing, pt's dgt and [facility] updated on discharge time. SW met with pt and discussed discharge plan for today and pt is agreeable. Discharge Date: 02/14/23 Disposition: [facility], intermediate level of care RENARD Townsend
[2023-02-14 12:13] VITALS: BP 116/78; PULSE 76; RESP 14; TEMP 36.9; O2SAT 97
--- NOTE | 2023-02-14 13:53 | CASEMGMT ---
Social Work BIMS () and PHQ9 () completed for [facility]. SW spoke with pt and provided emotional support. Pt feeling of depression are related to decline in health and need for nursing facility. Pt willing to talk with SW and shares feelings openly. Pt does confirm that she feels she would be better off but adamantly denies any thoughts of harming herself or SI. Pt citing her rashmi as a protective factor and I will wait for God to decide when I should . Pt to transfer to [facility] today. SW updated admission coordinator of concerns with pt mood and requested pt be seen by in house psychologist for followup. RENARD Townsend
== END 2023-02-14 14:38 | disposition intermediate care facility (04) | DRG 560 ==
PROVIDERS: Admitting Provider Family Medicine Geriatric Medicine; PCP Family Medicine; Visit Provider Family Medicine Geriatric Medicine
DX: S42.201D Unspecified fracture of upper end of right humerus, subsequent encounter for fracture with routine healing (principal); E22.2 Syndrome of inappropriate secretion of antidiuretic hormone; G93.40 Encephalopathy, unspecified; I48.91 Unspecified atrial fibrillation; D69.6 Thrombocytopenia, unspecified; M10.9 Gout, unspecified; K21.9 Gastro-esophageal reflux disease without esophagitis; W19.XXXD Unspecified fall, subsequent encounter; F41.9 Anxiety disorder, unspecified; S72.114D Nondisplaced fracture of greater trochanter of right femur, subsequent encounter for closed fracture with routine healing; Z79.01 Long term (current) use of anticoagulants; Z87.891 Personal history of nicotine dependence; Z79.899 Other long term (current) drug therapy
CPT/HCPCS: 36415; 73030; 73562; 80048; 81001; 83930; 83935; 84300; 85025; 87086; 87811; 92507; 92523; 97110; 97112; 97116; 97129; 97130; 97162; 97166; 97530; 97535

== ENCOUNTER → 2023-01-27 | Outpatient (CLI) | payer MEDICARE, SELFPAY ==
--- NOTE | 2023-01-27 08:53 | CT_ITS ---
STUDY: CT BRAIN WITHOUT CONTRAST REASON FOR EXAM: Female, 87 years old. Altered mental status RADIATION DOSAGE (If Supplied By Facility): CTDIvol = ( 44.99 ) mGy, DLP = ( 796.11 ) mGycm TECHNIQUE: Transaxial CT imaging of the brain was performed without administration of intravenous contrast material. Individualized dose optimization techniques were used for this CT. COMPARISON: No relevant priors. FINDINGS: Normal soft tissue structures. Normal calvarium. There is mild cerebral atrophy with widening of the extra-axial spaces and ventricular dilatation. There are areas of decreased attenuation within the white matter tracts of the supratentorial brain, consistent with microvascular disease changes. Normal basal ganglia and thalami. Normal brainstem. There is mild cerebellar atrophy. There is no intracranial hemorrhage. There are no findings of an acute ischemic infarction. Normal visualized paranasal sinuses. CT/Brain/Head without Contrast IMPRESSION: Chronic involutional changes of the brain. No acute hemorrhage Electronically Signed: Karl Muller MD at 9:22 EDT ,
== END | disposition home or self-care (01) ==
LOC: CT 08:43
PROVIDERS: PCP Family Medicine; Referring Provider Family Medicine Geriatric Medicine; Visit Provider Family Medicine Geriatric Medicine
DX: R41.82 Altered mental status, unspecified (principal)
CPT/HCPCS: 70450

== ENCOUNTER → 2023-02-01 | Outpatient (CLI) | payer MEDICARE, SELFPAY ==
--- NOTE | 2023-02-01 09:30 | CT_ITS ---
STUDY: CT PELVIS WITHOUT CONTRAST REASON FOR EXAM: Female, 87 years old. TCU PT. Right-sided pelvic and right hip pain following a recent fall. RADIATION DOSAGE (If Supplied By Facility): CTDIvol = ( 12.09 ) mGy, DLP = ( 398.61 ) mGycm TECHNIQUE: Transaxial imaging of the pelvis was performed with oral contrast, and without intravenous administration of contrast material. Individualized dose optimization techniques were used for this CT. COMPARISON: None. FINDINGS: Normal urinary bladder. The patient is status post hysterectomy. Normal visualized small intestine. Normal visualized colon. There is no pelvic fluid. There is no pelvic mass lesion or lymphadenopathy. There is diffuse atherosclerotic calcification of the pelvic arteries. Normal abdominal wall. Nondisplaced avulsion type fracture of the greater trochanter of the proximal right femur. CT/Pelvis without IV Contrast IMPRESSION: Nondisplaced avulsion type fracture of the greater trochanter of the proximal right femur. Electronically Signed: Souleymane Luther MD at 12:33 EDT ,
--- NOTE | 2023-02-01 09:30 | CT_ITS ---
STUDY: CT RIGHT KNEE WITHOUT CONTRAST REASON FOR EXAM: Female, 87 years old. TCU PT. History of recent fall. RADIATION DOSAGE (If Supplied By Facility): CTDIvol = ( 12.09 ) mGy, DLP = ( 398.61 ) mGycm TECHNIQUE: Transaxial CT imaging of the knee was performed. Coronal and sagittal images were reformatted. Individualized dose optimization techniques were used for this CT. COMPARISON: None. FINDINGS: Osteopenia. Mild degree of medial joint space narrowing. Osteopenia. There is preservation of the articular joint space of the lateral knee compartment. Normal proximal tibiofibular articulation. There is no joint effusion. The quadriceps tendon is grossly normal. The patellar tendon is grossly normal. Normal Hoffa''s fat pad. The soft tissues are unremarkable. CT/Extremity Lower without Contra IMPRESSION: Mild degree of joint space narrowing involving the medial compartment of knee joint. Electronically Signed: Souleymane Luther MD at 12:29 EDT ,
== END | disposition home or self-care (01) ==
PROVIDERS: PCP Family Medicine; Referring Provider Family Medicine Geriatric Medicine; Visit Provider Family Medicine Geriatric Medicine
DX: M79.609 Pain in unspecified limb (principal)
CPT/HCPCS: 72192; 73700

== ENCOUNTER → 2023-02-15 | Outpatient (REF) | payer MEDICARE, SELFPAY ==
[2023-02-15 07:59] LABS: Hematocrit 39.2 % (37-47); Hemoglobin 12.4 g/dL (12.0-15.0); Mean Corp Hgb Conc 31.6 g/dL (32-36); Mean Corpuscular Hgb 34.3 pg (27.0-32.0); Mean Corpuscular Volume 108.6 fL (81-99); Platelet Count 147 K/mm3 (150-450); RBC Distribution Width CV 14.7 % (11.6-14.6); RBC Distribution Width SD 59.2 fl (35.1-43.9); Red Blood Count 3.61 M/mm3 (4.2-5.4); White Blood Count 5.8 K/mm3 (4.4-11.0)
[2023-02-15 08:13] LABS: ALB/GLOB Ratio 0.8 RATIO (0.9-2.4); AST(SGOT) 32 U/L (15-37); Alanine Aminotransfer ALT/SGPT 29 U/L (13-56); Albumin, Serum 3.1 g/dL (3.2-5.0); Alkaline Phosphatase 196 U/L (45-117); Anion Gap 5 (5-15); BUN 14 mg/dL (7-18); BUN/Creat Ratio 16.6 RATIO (10-20); Calcium,Total 9.1 mg/dL (8.5-10.1); Chloride 109 mmol/L (98-107); Creatinine, Serum 0.84 mg/dL (0.55-1.02); EST Glomerular Filtration Rate 68 mL/min (>60); Est Glom Filt Rate - Afr Amer 82 mL/min (>60); Globulin 3.9 g/dL (2.2-4.2); Glucose 102 mg/dL (74-106); Potassium 4.4 mmol/L (3.5-5.1); Sodium Level 139 mmol/L (136-145)
== END ==
LOC: OLS.SW 06:30
PROVIDERS: PCP Family Medicine; Visit Provider Family Medicine
DX: Z02.2 Encounter for examination for admission to residential institution (principal); Z79.899 Other long term (current) drug therapy
CPT/HCPCS: 36415; 80053; 85027

== ENCOUNTER → 2023-02-16 | Outpatient (REF) | payer MEDICARE, SELFPAY ==
[2023-02-16 09:03] LABS: Hematocrit 38.8 % (37-47); Hemoglobin 12.3 g/dL (12.0-15.0); Mean Corp Hgb Conc 31.7 g/dL (32-36); Mean Corpuscular Hgb 34.4 pg (27.0-32.0); Mean Corpuscular Volume 108.4 fL (81-99); Platelet Count 141 K/mm3 (150-450); RBC Distribution Width CV 14.9 % (11.6-14.6); Red Blood Count 3.58 M/mm3 (4.2-5.4); White Blood Count 6.8 K/mm3 (4.4-11.0)
[2023-02-16 09:13] LABS: Anion Gap 5 (5-15); BUN 11 mg/dL (7-18); BUN/Creat Ratio 12.6 RATIO (10-20); Chloride 106 mmol/L (98-107); Creatinine, Serum 0.87 mg/dL (0.55-1.02); EST Glomerular Filtration Rate 65 mL/min (>60); Est Glom Filt Rate - Afr Amer 79 mL/min (>60); Glucose 122 mg/dL (74-106); Potassium 4.2 mmol/L (3.5-5.1); Sodium Level 135 mmol/L (136-145)
== END ==
LOC: OLS.SW 05:00
PROVIDERS: PCP Family Medicine; Visit Provider Family Medicine
DX: G93.40 Encephalopathy, unspecified (principal); S42.201D Unspecified fracture of upper end of right humerus, subsequent encounter for fracture with routine healing
CPT/HCPCS: 36415; 80048; 85027

== ENCOUNTER → 2023-02-23 | Outpatient (REF) | payer MEDICARE, SELFPAY ==
[2023-02-23 08:16] LABS: Hematocrit 38.6 % (37-47); Hemoglobin 12.8 g/dL (12.0-15.0); Mean Corp Hgb Conc 33.2 g/dL (32-36); Mean Corpuscular Hgb 34.6 pg (27.0-32.0); Mean Corpuscular Volume 104.3 fL (81-99); Mean Platelet Vol. 11.1 fl (6.2-12.0); Platelet Count 152 K/mm3 (150-450); RBC Distribution Width SD 54.4 fl (35.1-43.9); White Blood Count 4.4 K/mm3 (4.4-11.0)
[2023-02-23 08:24] LABS: Anion Gap 6 (5-15); BUN 11 mg/dL (7-18); BUN/Creat Ratio 15.4 RATIO (10-20); Calcium,Total 8.9 mg/dL (8.5-10.1); Chloride 104 mmol/L (98-107); Creatinine, Serum 0.71 mg/dL (0.55-1.02); EST Glomerular Filtration Rate 82 mL/min (>60); Est Glom Filt Rate - Afr Amer 100 mL/min (>60); Glucose 99 mg/dL (74-106); Potassium 4.1 mmol/L (3.5-5.1); Sodium Level 137 mmol/L (136-145)
== END ==
LOC: OLS.SW 05:00
PROVIDERS: PCP Family Medicine; Visit Provider Family Medicine
DX: I48.91 Unspecified atrial fibrillation (principal); I10 Essential (primary) hypertension
CPT/HCPCS: 36415; 80048; 85027

== ENCOUNTER → 2023-03-02 | Outpatient (REF) | payer MEDICARE, SELFPAY ==
[2023-03-02 09:43] LABS: Hematocrit 38.8 % (37-47); Mean Corp Hgb Conc 33.5 g/dL (32-36); Mean Corpuscular Hgb 35.1 pg (27.0-32.0); Mean Corpuscular Volume 104.9 fL (81-99); Mean Platelet Vol. 11.9 fl (6.2-12.0); Platelet Count 142 K/mm3 (150-450); RBC Distribution Width CV 13.8 % (11.6-14.6); RBC Distribution Width SD 54.2 fl (35.1-43.9); White Blood Count 5.4 K/mm3 (4.4-11.0)
[2023-03-02 09:59] LABS: Anion Gap 6 (5-15); BUN 13 mg/dL (7-18); BUN/Creat Ratio 18.9 RATIO (10-20); Calcium,Total 9.2 mg/dL (8.5-10.1); Chloride 101 mmol/L (98-107); Creatinine, Serum 0.69 mg/dL (0.55-1.02); EST Glomerular Filtration Rate 86 mL/min (>60); Est Glom Filt Rate - Afr Amer 104 mL/min (>60); Glucose 102 mg/dL (74-106); Potassium 4.4 mmol/L (3.5-5.1); Sodium Level 132 mmol/L (136-145)
== END ==
LOC: OLS.SW 07:08
PROVIDERS: PCP Family Medicine; Visit Provider Family Medicine
DX: I10 Essential (primary) hypertension (principal)
CPT/HCPCS: 36415; 80048; 85027